=== PATIENT | male | born 2000 | race Hispanic/Latino ===

== ENCOUNTER 2023-03-13 15:14 | Emergency (ER) | payer SELFPAY ==
--- OUTSIDE RECORDS SUMMARY | 2023-03-13 15:26 | XMS REPORT | Continuity of Care Document ---
:2000 Author Organization [facility] t Address [address] [place] [address] Care Team Providers Name Role Phone Abeba Marlow Primary Care Physician Oliva Marlow Attending Clinician Unavailable Doctor Unassigned, [place] Attending Clinician Unavailable Radiology Attending Clinician Unavailable RADIOLOGY Attending Clinician Unavailable CRISTAL Attending Clinician Unavailable Latonya Medrano DO Attending Clinician Jada Antonio Attending Clinician JADA ANTONIO M.D. Attending Clinician Unavailable TRISTIN ANTUNEZ Admitting Clinician Unavailable CRISTAL Admitting Clinician Unavailable Jada Antonio Admitting Clinician Payers Payer Name Policy Type Policy Number Effective Date Expiration Date S ource Problems Condition Condition Condition Status Onset Resolution Last Treating Co mments Source Name Details Category Date Date Treatment Clinician Date RT LFT RT LFT Diagnosis Active 2017-062018-08-19 Dc peggya MALLET MALLET 0-11 18:02:00 l Active 08:00: 04/08/2018 [facility] LACERATION Diagnosis Active 2018-03-30 Memoria LACERATION 03-02 14:06:00 l Active 00:00: [place] 03/02/2018 [facility] GISSEL GISSEL Diagnosis Active 2018-03-23 Memoria BILLING BILLING 03-02 11:30:00 l Active 00:00: [place] 03/02/2018 [facility] No known No known Disease Unive rs active active ity of problems problems [facility] Pain of Pain of Problem Active [place] right hand right hand [id number] Physici ans Laceration Laceratio Problem 2018-09-20 Memoria of n of 13:47:09 l extensor extensor Saad n muscle, muscle, fascia and fascia and tendon of tendon of right right index index finger at finger at wrist and wrist and hand hand level, level, initial initial encounter encounter 09/20/2018 [facility] Contact Contact Problem 2018-09-20 M emoria with with 13:47:09 l powered powered Larry garden and garden and outdoor outdoor hand tools hand tools and and machinery, machinery, initial initial encounter encounter 09/20/2018 [facility] Laceration Problem 2018-09-20 M emoria without Laceration 13:47:09 l foreign without [place] body of foreign right body of hand, right initial hand, encounter initial encounter 09/20/2018 [facility] LACERATION LACERATIO Diagnosis Active 2018-03-30 Memoria WITHOUT N WITHOUT 14:06:00 l FOREIGN FOREIGN Larry BODY OF BODY OF RIGHT RIGHT Active [facility] Pain in Pain in Problem 2018-11-25 Me moria joints of joints of 11:37:15 l right hand right hand He rmann 9 [facility] Localized Localized Problem 2018-11-25 Memoria swelling, swelling, 11:37:15 l mass and mass and Saad n lump, lump, right right upper limb upper limb 9 [facility] Stiffness Stiffness Problem 2018-11-25 Memoria of right of right 11:37:15 l hand, not hand, not Herm lazaro elsewhere elsewhere classified classified 11/25/2018 [facility] Nondisplac Nondispla Problem 2018-09-20 Memoria ed addy 13:47:09 l fracture fracture Saad n of medial of medial phalanx of phalanx of right right index index finger, finger, initial initial encounter encounter for open for open fracture fracture 09/20/2018 [facility] History of Past Illness Condition Condition Condition Status Onset Resolution Last Treating Co mments Source Name Details Category Date Date Treatment Clinician Date Mallet Mallet Problem 2017-2018-11-25 2018-11-25 Memoria finger of finger of 1-16 11:37:15 11:37:15 l right right 06:39: Larry finger(s) finger(s) 13 05/14/2018 9 [facility] Nondisplac Nondispla Problem 2017-2018-09-20 2018-09-20 [facility] ed addy 9-12 13:47:09 13:47:09 l fracture fracture 03:31: Saad n of distal of distal 04 phalanx of phalanx of right right index index finger, finger, initial initial encounter encounter for open for open fracture fracture 03/10/2018 09/20/2018 [facility] Allergies, Adverse Reactions, Alerts Allergy Allergy Status Severity Reaction(s) Onset Inactive Treating Comm ents Source Name Type Date Date Clinician NO KNOWN Drug Active Univers ALLERGIE Class ity of S [facility] No Known No Known Active Memori a Medicati Medicati l on on Larry Allergie Allergie s s Social History Social Habit Start Date Stop Date Quantity Comments Source Exposure to Unable to [facility] SARS-CoV-2 (event) assess [facility] Gender identity [facility] Sexual orientation Univer sity [facility] History of Social 2015-11-01 2015-11-01 Univers ity of function 00:00:00 00:00:00 [facility] Sex Assigned At [birth year] Universit y of 00:00:00 00:00:00 [facility] Smoking Status Start Date Stop Date Source Social History [facility] Medications Ordered Filled Start Stop Current Ordering Indication Dosage Frequency Signature Comments Components Source Medication Medication Date Date Medication? Clinician (SIG) Name Name Dose 2021-06 No Unknown 0-26 00:00: 00 Dose 2021-06 No Unknown 0-26 00:00: 00 TAKE 1 2021-06 No TABLET BY 0-25 MOUTH ONCE 00:00: DAILY 00 TAKE 1 2021-06 No TABLET BY 0-25 MOUTH ONCE 00:00: DAILY 00 Dose 2020-06 No Unknown 2-30 00:00: 00 Dose 2020-06 No Unknown 2-30 00:00: 00 clindamycin 2020-06 No 1mg HCl 300 mg 2-21 capsule 00:00: 00 clindamycin 2020-06 No 1mg HCl 300 mg 2-21 capsule 00:00: 00 maalox:diph 2021-0 2021- No 15mL 15 mL, Uni vers enhydrAMINE 01-24 Oral, ity of :lidocaine 15:15: 14:20 ONCE, 1 Lukasz as 2 % viscous 00 :00 dose, Aura Med ical 1:1:1 01/24/21 at [place] (FIRST-MOUT 1015, HWASH BLM) Routine oral suspension 15 mL Ancef No Notes: Memoria -05 Pediatric l 16:00: Dilution - [place] 00 Wruh=345uh /ml (Same As: Ancef) Ancef No Notes: Memoria -05 Pediatric l 16:00: Dilution - [place] 00 Adye=736pd /ml (Same As: Ancef) Ancef 0 No Notes: Memoria -05 Pediatric l 16:00: Dilution - [place] 00 Tyjf=264hl /ml (Same As: Ancef) Ancef No Notes: Memoria 05 Pediatric l 16:00: Dilution - [place] 00 Pwgo=297qh /ml (Same As: Ancef) Ancef No Notes: Memoria 05 Pediatric l 16:00: Dilution - [place] 00 Ugig=198mj /ml (Same As: Ancef) Ancef No Notes: Memoria -05 Pediatric l 16:00: Dilution - [place] 00 Ljek=462ir /ml (Same As: Ancef) Ancef 0 No Notes: Memoria -05 Pediatric l 16:00: Dilution [place] 00 - Wygq=759zo /ml (Same As: Ancef) Ancef 0 No Notes: Memoria 9-05 Pediatric l 16:00: Dilution - [place] 00 Wbvq=369qv /ml (Same As: Ancef) Ancef 0 No Notes: Memoria 9-05 Pediatric l 16:00: Dilution - [place] 00 Pwgn=840dx /ml (Same As: Ancef) Ancef 0 No Notes: Memoria -05 Pediatric l 16:00: Dilution - [place] 00 Imde=367rx /ml (Same As: Ancef) Ancef 0 No Notes: Memoria 9-05 Pediatric l 16:00: Dilution - [place] 00 Kpph=184fv /ml (Same As: Ancef) Ancef 0 No Notes: Memoria 9-05 Pediatric l 16:00: Dilution - [place] 00 Emjb=997qj /ml (Same As: Ancef) Ancef 2018-0 No Notes: Memoria 03-03 Pediatric l 16:00: Dilution - [place] 00 Lubp=738ru /ml (Same As: Ancef) Cefazolin 2018-0 No Notes: Memori a 03-03 Pediatric l 05:00: Dilution - [place] 00 Gafj=219bl /ml (Same As: Ancef) Cefazolin 2018-0 No Notes: Memori a 03-03 Pediatric l 05:00: Dilution - [place] 00 Jpwr=852tn /ml (Same As: Ancef) Cefazolin 2018-0 No Notes: Memori a 03-03 Pediatric l 05:00: Dilution - [place] 00 Hstc=441ao /ml (Same As: Ancef) Cefazolin 2018-0 No Notes: Memori a 03-03 Pediatric l 05:00: Dilution - [place] 00 Varo=913ny /ml (Same As: Ancef) Cefazolin 2018-0 No Notes: Memori a 03-03 Pediatric l 05:00: Dilution - [place] 00 Rrkx=420fu /ml (Same As: Ancef) Cefazolin 2018-0 No Notes: Memori a 03-03 Pediatric l 05:00: Dilution - [place] 00 Uofx=436ec /ml (Same As: Ancef) Cefazolin 2018-0 No Notes: Memori a 03-03 Pediatric l 05:00: Dilution - [place] 00 Asly=787hu /ml (Same As: Ancef) Cefazolin 2018-0 No Notes: Memori a 03-03 Pediatric l 05:00: Dilution - [place] 00 Gomp=535ac /ml (Same As: Ancef) Cefazolin 2018-0 No Notes: Memori a 03-03 Pediatric l 05:00: Dilution - [place] 00 Bosz=592mf /ml (Same As: Ancef) Cefazolin 2018-0 No Notes: Memori a 03-03 Pediatric l 05:00: Dilution - [place] 00 Jkoa=223ul /ml (Same As: Ancef) Cefazolin 2018-0 No Notes: Memori a 03-03 Pediatric l 05:00: Dilution - [place] 00 Tmnr=540gi /ml (Same As: Ancef) Cefazolin 2018-0 No Notes: Memori a 03-03 Pediatric l 05:00: Dilution - [place] 00 Djxh=285dd /ml (Same As: Ancef) Cefazolin 2018-0 No Notes: Memori a 03-03 Pediatric l 05:00: Dilution - [place] 00 Qjma=226tx /ml (Same As: Ancef) oxyCODONE 2018-0 No Notes: Memori a - (Same l 01:29: as:'Roxico [place] 00 done) To be drawn up in 3 mL syr oxyCODONE 2018-0 No Notes: Memori a - (Same l 01:29: as:'Roxico [place] 00 done) To be drawn up in 3 mL syr oxyCODONE 2018-0 No Notes: Memori a 03-03 (Same l 01:29: as:'Roxico [place] 00 done) To be drawn up in 3 mL syr oxyCODONE 2018-0 No Notes: Memori a 03-03 (Same l 01:29: as:'Roxico [place] 00 done) To be drawn up in 3 mL syr oxyCODONE 2018-0 No Notes: Memori a - (Same l 01:29: as:'Roxico [place] 00 done) To be drawn up in 3 mL syr oxyCODONE 2018-0 No Notes: Memori a 03-03 (Same l 01:29: as:'Roxico [place] 00 done) To be drawn up in 3 mL syr oxyCODONE 2018-0 No Notes: Memori a - (Same l 01:29: as:'Roxico [place] 00 done) To be drawn up in 3 mL syr oxyCODONE 2018-0 No Notes: Memori a - (Same l 01:29: as:'Roxico [place] 00 done) To be drawn up in 3 mL syr oxyCODONE 2018-0 No Notes: Memori a -05 (Same l 01:29: as:'Roxico [place] 00 done) To be drawn up in 3 mL syr oxyCODONE 2018-0 No Notes: Memori a 9-05 (Same l 01:29: as:'Roxico [place] 00 done) To be drawn up in 3 mL syr oxyCODONE 2018-0 No Notes: Memori a 9- (Same l 01:29: as:'Roxico [place] 00 done) To be drawn up in 3 mL syr oxyCODONE 2018-0 No Notes: Memori a 9-05 (Same l 01:29: as:'Roxico [place] 00 done) To be drawn up in 3 mL syr oxyCODONE 2018-0 No Notes: Memori a 9-05 (Same l 01:29: as:'Roxico [place] 00 done) To be drawn up in 3 mL syr Ibuprofen 2018-0 No Notes: Memori a 400 MG Oral 9-05 (Same as: l Tablet 00:48: Advil) Larry 00 Give with food. Ibuprofen 2018-0 No Notes: Memori a 400 MG Oral 9-05 (Same as: l Tablet 00:48: Advil) [place] 00 Give with food. Ibuprofen 2018-0 No Notes: Memori a 400 MG Oral 9-05 (Same as: l Tablet 00:48: Advil) [place] 00 Give with food. Ibuprofen 2018-0 No Notes: Memori a 400 MG Oral 9-05 (Same as: l Tablet 00:48: Advil) [place] 00 Give with food. Ibuprofen 2018-0 No Notes: Memori a 400 MG Oral 9-05 (Same as: l Tablet 00:48: Advil) [place] 00 Give with food. Ibuprofen 2018-0 No Notes: Memori a 400 MG Oral 9-05 (Same as: l Tablet 00:48: Advil) Larry 00 Give with food. Ibuprofen 2018-0 No Notes: Memori a 400 MG Oral 9-05 (Same as: l Tablet 00:48: Advil) [place] 00 Give with food. Ibuprofen 2018-0 No Notes: Memori a 400 MG Oral 9-05 (Same as: l Tablet 00:48: Advil) [place] 00 Give with food. Ibuprofen 2018-0 No Notes: Memori a 400 MG Oral 9-05 (Same as: l Tablet 00:48: Advil) [place] 00 Give with food. Ibuprofen 2018-0 No Notes: Memori a 400 MG Oral 9-05 (Same as: l Tablet 00:48: Advil) Larry 00 Give with food. Ibuprofen 2018-0 No Notes: Memori a 400 MG Oral 9-05 (Same as: l Tablet 00:48: Advil) Larry 00 Give with food. Ibuprofen 2018-0 No Notes: Memori a 400 MG Oral -05 (Same as: l Tablet 00:48: Advil) [place] Give with food. Ibuprofen 2018- No Notes: Memori a 400 MG Oral 9-05 (Same as: l Tablet 00:48: Advil) Larry Give with food. midazolam No Route: IV, Me moria (ANES) 03-03 Drug form: l 00:43: SOLN, [place] 00 ONCE, Stop date: 03/02/18 19:43:00 CDT Diphenhydra 2017-0 No Notes: Puneet cecile mine - (Same as: l 00:43: Benadryl) Larry 00 Ondansetron No Notes: Puneet cecile 9-05 (Same as: l 00:43: Zofran) Larry 00 MEDICATION WASTE Product Size: 4 mg Product Wasted: ___ mg midazolam No Route: IV, Me moria (ANES) 03-03 Drug form: l 00:43: SOLN, [place] 00 ONCE, Stop date: 03/02/18 19:43:00 CDT Diphenhydra 2017-0 No Notes: Puneet cecile mine -05 (Same as: l 00:43: Benadryl) [place] 00 Ondansetron 0 No Notes: Puneet cecile -05 (Same as: l 00:43: Zofran) [place] 00 MEDICATION WASTE Product Size: 4 mg Product Wasted: ___ mg midazolam No Route: IV, Me moria (ANES) 03-03 Drug form: l 00:43: SOLN, [place] 00 ONCE, Stop date: 03/02/18 19:43:00 CDT Diphenhydra 2017-0 No Notes: Puneet cecile mine -05 (Same as: l 00:43: Benadryl) [place] 00 Ondansetron 0 No Notes: Puneet cecile 9-05 (Same as: l 00:43: Zofran) [place] 00 MEDICATION WASTE Product Size: 4 mg Product Wasted: ___ mg midazolam No Route: IV, Me moria (ANES) 9 Drug form: l 00:43: SOLN, Larry 00 ONCE, Stop date: 03/02/18 19:43:00 CDT Diphenhydra 2017-0 No Notes: Puneet cecile mine - (Same as: l 00:43: Benadryl) [place] Ondansetron No Notes: Puneet cecile 9-05 (Same as: l 00:43: Zofran) [place] 00 MEDICATION WASTE Product Size: 4 mg Product Wasted: ___ mg midazolam 2017- No Route: IV, Me moria (ANES) 03-03 Drug form: l 00:43: SOLN, [place] 00 ONCE, Stop date: 03/02/18 19:43:00 CDT Diphenhydra 2017-0 No Notes: Puneet cecile mine 03-03 (Same as: l 00:43: Benadryl) [place] Ondansetron No Notes: Puneet cecile 9 (Same as: l 00:43: Zofran) Larry 00 MEDICATION WASTE Product Size: 4 mg Product Wasted: ___ mg midazolam 2017-0 No Route: IV, Me moria (ANES) 03-03 Drug form: l 00:43: SOLNLarry 00 ONCE, Stop date: 03/02/18 19:43:00 CDT Diphenhydra 2017-0 No Notes: Puneet cecile mine 03-03 (Same as: l 00:43: Benadryl) Larry Ondansetron No Notes: Puneet cecile 9-05 (Same as: l 00:43: Zofran) Larry 00 MEDICATION WASTE Product Size: 4 mg Product Wasted: ___ mg midazolam 2017-0 No Route: IV, Me moria (ANES) 03-03 Drug form: l 00:43: SOLNLarry 00 ONCE, Stop date: 03/02/18 19:43:00 CDT Diphenhydra 2017-0 No Notes: Puneet cecile mine -05 (Same as: l 00:43: Benadryl) [place] Ondansetron 2017-0 No Notes: Puneet cecile 9-05 (Same as: l 00:43: Zofran) Larry 00 MEDICATION WASTE Product Size: 4 mg Product Wasted: ___ mg midazolam 2017-0 No Route: IV, Me moria (ANES) 03-03 Drug form: l 00:43: SOLN, [place] 00 ONCE, Stop date: 03/02/18 19:43:00 CDT Diphenhydra 2017-0 No Notes: Puneet cceile mine 03-03 (Same as: l 00:43: Benadryl) Larry Ondansetron 2017- No Notes: Puneet cecile 03-03 (Same as: l 00:43: Zofran) Larry 00 MEDICATION WASTE Product Size: 4 mg Product Wasted: ___ mg midazolam 2017- No Route: IV, Me moria (ANES) 03-03 Drug form: l 00:43: SOLN, Larry 00 ONCE, Stop date: 03/02/18 19:43:00 CDT Diphenhydra 2017-0 No Notes: Puneet cecile mine 03-03 (Same as: l 00:43: Benadryl) [place] Ondansetron 2017-0 No Notes: Puneet cecile 03-03 (Same as: l 00:43: Zofran) Larry 00 MEDICATION WASTE Product Size: 4 mg Product Wasted: ___ mg midazolam No Route: IV, Me moria (ANES) 03-03 Drug form: l 00:43: SOLN, [place] 00 ONCE, Stop date: 03/02/18 19:43:00 CDT Diphenhydra 2017-0 No Notes: Puneet cecile mine 03-03 (Same as: l 00:43: Benadryl) Larry Ondansetron 2017-0 No Notes: Puneet cecile 03-03 (Same as: l 00:43: Zofran) Larry 00 MEDICATION WASTE Product Size: 4 mg Product Wasted: ___ mg midazolam No Route: IV, Me moria (ANES) 03-03 Drug form: l 00:43: SOLN, [place] 00 ONCE, Stop date: 03/02/18 19:43:00 CDT Diphenhydra 2017-0 No Notes: Puneet cecile mine 03-03 (Same as: l 00:43: Benadryl) [place] Ondansetron No Notes: Puneet cecile 03-03 (Same as: l 00:43: Zofran) Larry 00 MEDICATION WASTE Product Size: 4 mg Product Wasted: ___ mg midazolam No Route: IV, Me moria (ANES) 03-03 Drug form: l 00:43: SOLN, Larry 00 ONCE, Stop date: 03/02/18 19:43:00 CDT Diphenhydra 0 No Notes: Puneet cecile mine 03-03 (Same as: l 00:43: Benadryl) [place] Ondansetron No Notes: Puneet cecile 03-03 (Same as: l 00:43: Zofran) Larry 00 MEDICATION WASTE Product Size: 4 mg Product Wasted: ___ mg midazolam No Route: IV, Me moria (ANES) 03-03 Drug form: l 00:43: SOLN, [place] 00 ONCE, Stop date: 03/02/18 19:43:00 CDT Diphenhydra 2017-0 No Notes: Puneet cecile mine 03-03 (Same as: l 00:43: Benadryl) Larry Ondansetron No Notes: Puneet cecile 03-03 (Same as: l 00:43: Zofran) [place] 00 MEDICATION WASTE Product Size: 4 mg Product Wasted: ___ mg Acetaminoph No 1 tab, Puneet cecile en 300 MG / 03-03 Route: PO, l Codeine 00:42: Dosing [place] Phosphate 00 Weight 30 MG Oral 54.545, Tablet kg, Q4H, [Tylenol PRN Pain with Score Codeine #3] 6-10, Start date: 03/02/18 19:42:00 CDT, Duration: 30 day, Stop date: 04/01/18 19:41:00 CDT Acetaminoph 2017- No 1 tab, Puneet cecile en 300 MG / 03-03 Route: PO, l Codeine 00:42: Dosing [place] Phosphate 00 Weight 30 MG Oral 54.545, Tablet kg, Q4H, [Tylenol PRN Pain with Score Codeine #3] 6-10, Start date: 03/02/18 19:42:00 CDT, Duration: 30 day, Stop date: 04/01/18 19:41:00 CDT Acetaminoph 2017-0 No 1 tab, Puneet cecile en 300 MG / 03-03 Route: PO, l Codeine 00:42: Dosing [place] Phosphate 00 Weight 30 MG Oral 54.545, Tablet kg, Q4H, [Tylenol PRN Pain with Score Codeine #3] 6-10, Start date: 03/02/18 19:42:00 CDT, Duration: 30 day, Stop date: 04/01/18 19:41:00 CDT Acetaminoph 2017-0 No 1 tab, Puneet cecile en 300 MG / 03-03 Route: PO, l Codeine 00:42: Dosing [place] Phosphate 00 Weight 30 MG Oral 54.545, Tablet kg, Q4H, [Tylenol PRN Pain with Score Codeine #3] 6-10, Start date: 03/02/18 19:42:00 CDT, Duration: 30 day, Stop date: 04/01/18 19:41:00 CDT Acetaminoph 2017-0 No 1 tab, Puneet cecile en 300 MG / 05 Route: PO, l Codeine 00:42: Dosing [place] Phosphate 00 Weight 30 MG Oral 54.545, Tablet kg, Q4H, [Tylenol PRN Pain with Score Codeine #3] 6-10, Start date: 03/02/18 19:42:00 CDT, Duration: 30 day, Stop date: 04/01/18 19:41:00 CDT Acetaminoph 2017-0 No 1 tab, Puneet cecile en 300 MG / 05 Route: PO, l Codeine 00:42: Dosing [place] Phosphate 00 Weight 30 MG Oral 54.545, Tablet kg, Q4H, [Tylenol PRN Pain with Score Codeine #3] 6-10, Start date: 03/02/18 19:42:00 CDT, Duration: 30 day, Stop date: 04/01/18 19:41:00 CDT Acetaminoph 2017-0 No 1 tab, Puneet cecile en 300 MG / 05 Route: PO, l Codeine 00:42: Dosing [place] Phosphate 00 Weight 30 MG Oral 54.545, Tablet kg, Q4H, [Tylenol PRN Pain with Score Codeine #3] 6-10, Start date: 03/02/18 19:42:00 CDT, Duration: 30 day, Stop date: 04/01/18 19:41:00 CDT Acetaminoph 2017-0 No 1 tab, Puneet cecile en 300 MG / 03-03 Route: PO, l Codeine 00:42: Dosing [place] Phosphate 00 Weight 30 MG Oral 54.545, Tablet kg, Q4H, [Tylenol PRN Pain with Score Codeine #3] 6-10, Start date: 03/02/18 19:42:00 CDT, Duration: 30 day, Stop date: 04/01/18 19:41:00 CDT Acetaminoph 2017-0 No 1 tab, Puneet cecile en 300 MG / 03-03 Route: PO, l Codeine 00:42: Dosing [place] Phosphate 00 Weight 30 MG Oral 54.545, Tablet kg, Q4H, [Tylenol PRN Pain with Score Codeine #3] 6-10, Start date: 03/02/18 19:42:00 CDT, Duration: 30 day, Stop date: 04/01/18 19:41:00 CDT Acetaminoph 2017-0 No 1 tab, Puneet ceciel en 300 MG / 03-03 Route: PO, l Codeine 00:42: Dosing [place] Phosphate 00 Weight 30 MG Oral 54.545, Tablet kg, Q4H, [Tylenol PRN Pain with Score Codeine #3] 6-10, Start date: 03/02/18 19:42:00 CDT, Duration: 30 day, Stop date: 04/01/18 19:41:00 CDT Acetaminoph 2017-0 No 1 tab, Puneet cecile en 300 MG / 05 Route: PO, l Codeine 00:42: Dosing [place] Phosphate 00 Weight 30 MG Oral 54.545, Tablet kg, Q4H, [Tylenol PRN Pain with Score Codeine #3] 6-10, Start date: 03/02/18 19:42:00 CDT, Duration: 30 day, Stop date: 04/01/18 19:41:00 CDT Acetaminoph 2018-0 No 1 tab, Puneet cecile en 300 MG / 03-03 Route: PO, l Codeine 00:42: Dosing [place] Phosphate 00 Weight 30 MG Oral 54.545, Tablet kg, Q4H, [Tylenol PRN Pain with Score Codeine #3] 6-10, Start date: 03/02/18 19:42:00 CDT, Duration: 30 day, Stop date: 04/01/18 19:41:00 CDT Acetaminoph 0 No 1 tab, Puneet cecile en 300 MG / 03-03 Route: PO, l Codeine 00:42: Dosing [place] Phosphate 00 Weight 30 MG Oral 54.545, Tablet kg, Q4H, [Tylenol PRN Pain with Score Codeine #3] 6-10, Start date: 03/02/18 19:42:00 CDT, Duration: 30 day, Stop date: 04/01/18 19:41:00 CDT ondansetron 2017-0 No Route: IV, Memoria (ANES) 03-03 Drug form: l 00:40: INJ, ONCE, Larry 00 Stop date: 03/02/18 19:40:00 CDT ondansetron 0 No Route: IV, Memoria (ANES) 03-03 Drug form: l 00:40: INJ, ONCE, [place] 00 Stop date: 03/02/18 19:40:00 CDT ondansetron 2017-0 No Route: IV, Memoria (ANES) 03-03 Drug form: l 00:40: INJ, ONCE, [place] 00 Stop date: 03/02/18 19:40:00 CDT ondansetron 2017-0 No Route: IV, Memoria (ANES) 03-03 Drug form: l 00:40: INJ, ONCE, Larry Stop date: 03/02/18 19:40:00 CDT ondansetron 2017-0 No Route: IV, Memoria (ANES) 03-03 Drug form: l 00:40: INJ, ONCE, [place] 00 Stop date: 03/02/18 19:40:00 CDT ondansetron 2017-0 No Route: IV, Memoria (ANES) 03-03 Drug form: l 00:40: INJ, ONCE, [place] 00 Stop date: 03/02/18 19:40:00 CDT ondansetron 2017-0 No Route: IV, Memoria (ANES) 03-03 Drug form: l 00:40: INJ, ONCE, Stop date: 03/02/18 19:40:00 CDT ondansetron 2018-0 No Route: IV, Memoria (ANES) 03-03 Drug form: l 00:40: INJ, ONCE, Stop date: 03/02/18 19:40:00 CDT ondansetron 2017-0 No Route: IV, Memoria (ANES) 03-03 Drug form: l 00:40: INJ, ONCE, Stop date: 03/02/18 19:40:00 CDT ondansetron 2018-0 No Route: IV, Memoria (ANES) 03-03 Drug form: l 00:40: INJ, ONCE, Stop date: 03/02/18 19:40:00 CDT ondansetron 2017-0 No Route: IV, Memoria (ANES) 03-03 Drug form: l 00:40: INJ, ONCE, Stop date: 03/02/18 19:40:00 CDT ondansetron 2017-0 No Route: IV, Memoria (ANES) 03-03 Drug form: l 00:40: INJ, ONCE, Stop date: 03/02/18 19:40:00 CDT ondansetron 2017-0 No Route: IV, Memoria (ANES) 03-03 Drug form: l 00:40: INJ, ONCE, Stop date: 03/02/18 19:40:00 CDT dexmedetomi 2017-0 No Route: IV, Memoria dine (ANES) 03-03 Drug form: l + Premix 00:20: INJ, ONCE, Her navarrete Diluent Stop date: Sodium 03/02/18 Chloride 19:20:00 0.9% (ANES) CDT 98 mL dexmedetomi 2017-0 No Route: IV, Memoria dine (ANES) 03-03 Drug form: l + Premix 00:20: INJ, ONCE, Her nav[place] Diluent Stop date: Sodium 03/02/18 Chloride 19:20:00 0.9% (ANES) CDT 98 mL dexmedetomi No Route: IV, Memoria dine (ANES) 03-03 Drug form: l + Premix 00:20: INJ, ONCE, Her nav[place] Diluent 00 Stop date: Sodium 03/02/18 Chloride 19:20:00 0.9% (ANES) CDT 98 mL dexmedetomi No Route: IV, Memoria dine (ANES) 03-03 Drug form: l + Premix 00:20: INJ, ONCE, Her navar[place] Diluent 00 Stop date: Sodium 03/02/18 Chloride 19:20:00 0.9% (ANES) CDT 98 mL dexmedetomi No Route: IV, Memoria dine (ANES) 03-03 Drug form: l + Premix 00:20: INJ, ONCE, Her nav[place] Diluent 00 Stop date: Sodium 03/02/18 Chloride 19:20:00 0.9% (ANES) CDT 98 mL dexmedetomi No Route: IV, Memoria dine (ANES) 03-03 Drug form: l + Premix 00:20: INJ, ONCE, Her navarrete Diluent 00 Stop date: Sodium 03/02/18 Chloride 19:20:00 0.9% (ANES) CDT 98 mL dexmedetomi No Route: IV, Memoria dine (ANES) 03-03 Drug form: l + Premix 00:20: INJ, ONCE, Her navarrete Diluent 00 Stop date: Sodium 03/02/18 Chloride 19:20:00 0.9% (ANES) CDT 98 mL dexmedetomi No Route: IV, Memoria dine (ANES) 03-03 Drug form: l + Premix 00:20: INJ, ONCE, Her navarrete Diluent 00 Stop date: Sodium 03/02/18 Chloride 19:20:00 0.9% (ANES) CDT 98 mL dexmedetomi No Route: IV, Memoria dine (ANES) 03-03 Drug form: l + Premix 00:20: INJ, ONCE, Her navarrete Diluent 00 Stop date: Sodium 03/02/18 Chloride 19:20:00 0.9% (ANES) CDT 98 mL dexmedetomi No Route: IV, Memoria dine (ANES) 03-03 Drug form: l + Premix 00:20: INJ, ONCE, Her navarrete Diluent 00 Stop date: Sodium 03/02/18 Chloride 19:20:00 0.9% (ANES) CDT 98 mL dexmedetomi No Route: IV, Memoria dine (ANES) 03-03 Drug form: l + Premix 00:20: INJ, ONCE, Her navarrete Diluent 00 Stop date: Sodium 03/02/18 Chloride 19:20:00 0.9% (ANES) CDT 98 mL dexmedetomi No Route: IV, Memoria dine (ANES) 03-03 Drug form: l + Premix 00:20: INJ, ONCE, Her navarrete Diluent 00 Stop date: Sodium 03/02/18 Chloride 19:20:00 0.9% (ANES) CDT 98 mL dexmedetomi No Route: IV, Memoria dine (ANES) 03-03 Drug form: l + Premix 00:20: INJ, ONCE, Her navarrete Diluent 00 Stop date: Sodium 03/02/18 Chloride 19:20:00 0.9% (ANES) CDT 98 mL dexamethaso No Route: IV, Memoria ne (ANES) 03-03 Drug form: l 00:10: INJ, ONCE, [place] 00 Stop date: 03/02/18 19:10:00 CDT dexamethaso 0 No Route: IV, Memoria ne (ANES) 03-03 Drug form: l 00:10: INJ, ONCE, [place] 00 Stop date: 03/02/18 19:10:00 CDT dexamethaso 2017-0 No Route: IV, Memoria ne (ANES) 03-03 Drug form: l 00:10: INJ, ONCE, [place] 00 Stop date: 03/02/18 19:10:00 CDT dexamethaso 2017-0 No Route: IV, Memoria ne (ANES) 03-03 Drug form: l 00:10: INJ, ONCE, [place] 00 Stop date: 03/02/18 19:10:00 CDT dexamethaso 0 No Route: IV, Memoria ne (ANES) 03-03 Drug form: l 00:10: INJ, ONCE, Stop date: 03/02/18 19:10:00 CDT dexamethaso 2018-0 No Route: IV, Memoria ne (ANES) 03-03 Drug form: l 00:10: INJ, ONCE, Stop date: 03/02/18 19:10:00 CDT dexamethaso 2017-0 No Route: IV, Memoria ne (ANES) 03-03 Drug form: l 00:10: INJ, ONCE, Stop date: 03/02/18 19:10:00 CDT dexamethaso 2017-0 No Route: IV, Memoria ne (ANES) 03-03 Drug form: l 00:10: INJ, ONCE, Stop date: 03/02/18 19:10:00 CDT dexamethaso 2017-0 No Route: IV, Memoria ne (ANES) 03-03 Drug form: l 00:10: INJ, ONCE, Stop date: 03/02/18 19:10:00 CDT dexamethaso 2017-0 No Route: IV, Memoria ne (ANES) 03-03 Drug form: l 00:10: INJ, ONCE, Stop date: 03/02/18 19:10:00 CDT dexamethaso 2018-0 No Route: IV, Memoria ne (ANES) 03-03 Drug form: l 00:10: INJ, ONCE, Stop date: 03/02/18 19:10:00 CDT dexamethaso 2017-0 No Route: IV, Memoria ne (ANES) 03-03 Drug form: l 00:10: INJ, ONCE, Stop date: 03/02/18 19:10:00 CDT dexamethaso 2017-0 No Route: IV, Memoria ne (ANES) 03-03 Drug form: l 00:10: INJ, ONCE, Stop date: 03/02/18 19:10:00 CDT lidocaine 2017-0 No Route: IV, Me moria (ANES) 03-03 Drug form: l 00:05: INJ, ONCE, Stop date: 03/02/18 19:05:00 CDT lidocaine 2018-0 No Route: IV, Me moria (ANES) 9 Drug form: l 00:05: INJ, ONCE, [place] 00 Stop date: 03/02/18 19:05:00 CDT lidocaine 2018-0 No Route: IV, Me moria (ANES) 9 Drug form: l 00:05: INJ, ONCE, [place] 00 Stop date: 03/02/18 19:05:00 CDT lidocaine 2018-0 No Route: IV, Me moria (ANES) 03-03 Drug form: l 00:05: INJ, ONCE, [place] 00 Stop date: 03/02/18 19:05:00 CDT lidocaine 2018-0 No Route: IV, Me moria (ANES) 03-03 Drug form: l 00:05: INJ, ONCE, [place] 00 Stop date: 03/02/18 19:05:00 CDT lidocaine 2018-0 No Route: IV, Me moria (ANES) 03-03 Drug form: l 00:05: INJ, ONCE, Stop date: 03/02/18 19:05:00 CDT lidocaine 2018-0 No Route: IV, Me moria (ANES) 03-03 Drug form: l 00:05: INJ, ONCE, [place] 00 Stop date: 03/02/18 19:05:00 CDT lidocaine 2018-0 No Route: IV, Me moria (ANES) 9 Drug form: l 00:05: INJ, ONCE, Stop date: 03/02/18 19:05:00 CDT lidocaine 2018-0 No Route: IV, Me moria (ANES) 9 Drug form: l 00:05: INJ, ONCE, [place] 00 Stop date: 03/02/18 19:05:00 CDT lidocaine 2018-0 No Route: IV, Me moria (ANES) 9 Drug form: l 00:05: INJ, ONCE, [place] 00 Stop date: 03/02/18 19:05:00 CDT lidocaine 2018-0 No Route: IV, Me moria (ANES) 9- Drug form: l 00:05: INJ, ONCE, [place] 00 Stop date: 03/02/18 19:05:00 CDT lidocaine 2018-0 No Route: IV, Me moria (ANES) 9-05 Drug form: l 00:05: INJ, ONCE, Stop date: 03/02/18 19:05:00 CDT lidocaine 2018-0 No Route: IV, Me moria (ANES) 03-03 Drug form: l 00:05: INJ, ONCE, [place] 00 Stop date: 03/02/18 19:05:00 CDT fentaNYL 2018-0 No Route: IV, Mem oria (ANES) 03-03 Drug form: l 00:00: INJ, ONCE, [place] 00 Stop date: 03/02/18 19:00:00 CDT propofol 2018-0 No Route: IV, Mem oria (ANES) 9- Drug form: l 00:00: INJ, ONCE, Stop date: 03/02/18 19:00:00 CDT fentaNYL 2018-0 No Route: IV, Mem oria (ANES) - Drug form: l 00:00: INJ, ONCE, Stop date: 03/02/18 19:00:00 CDT propofol 2018-0 No Route: IV, Mem oria (ANES) 9- Drug form: l 00:00: INJ, ONCE, Stop date: 03/02/18 19:00:00 CDT fentaNYL 2018-0 No Route: IV, Mem oria (ANES) 9- Drug form: l 00:00: INJ, ONCE, [place] 00 Stop date: 03/02/18 19:00:00 CDT propofol 2018-0 No Route: IV, Mem oria (ANES) 9- Drug form: l 00:00: INJ, ONCE, [place] 00 Stop date: 03/02/18 19:00:00 CDT fentaNYL 2018-0 No Route: IV, Mem oria (ANES) 9- Drug form: l 00:00: INJ, ONCE, [place] 00 Stop date: 03/02/18 19:00:00 CDT propofol 2018-0 No Route: IV, Mem oria (ANES) 9- Drug form: l 00:00: INJ, ONCE, [place] 00 Stop date: 03/02/18 19:00:00 CDT fentaNYL 2018-0 No Route: IV, Mem oria (ANES) 9-05 Drug form: l 00:00: INJ, ONCE, [place] Stop date: 03/02/18 19:00:00 CDT propofol 2018-0 No Route: IV, Mem oria (ANES) 9-05 Drug form: l 00:00: INJ, ONCE, [place] Stop date: 03/02/18 19:00:00 CDT fentaNYL 2018-0 No Route: IV, Mem oria (ANES) 9-05 Drug form: l 00:00: INJ, ONCE, [place] Stop date: 03/02/18 19:00:00 CDT propofol 2018-0 No Route: IV, Mem oria (ANES) 9-05 Drug form: l 00:00: INJ, ONCE, [place] Stop date: 03/02/18 19:00:00 CDT fentaNYL 2018-0 No Route: IV, Mem oria (ANES) 9-05 Drug form: l 00:00: INJ, ONCE, [place] 00 Stop date: 03/02/18 19:00:00 CDT propofol 2018-0 No Route: IV, Mem oria (ANES) 9-05 Drug form: l 00:00: INJ, ONCE, [place] 00 Stop date: 03/02/18 19:00:00 CDT fentaNYL 2018-0 No Route: IV, Mem oria (ANES) 9-05 Drug form: l 00:00: INJ, ONCE, [place] Stop date: 03/02/18 19:00:00 CDT propofol 2018-0 No Route: IV, Mem oria (ANES) 9-05 Drug form: l 00:00: INJ, ONCE, [place] Stop date: 03/02/18 19:00:00 CDT fentaNYL 2018-0 No Route: IV, Mem oria (ANES) 9-05 Drug form: l 00:00: INJ, ONCE, [place] Stop date: 03/02/18 19:00:00 CDT propofol 2018-0 No Route: IV, Mem oria (ANES) 9-05 Drug form: l 00:00: INJ, ONCE, [place] Stop date: 03/02/18 19:00:00 CDT fentaNYL 2018-0 No Route: IV, Mem oria (ANES) 9-05 Drug form: l 00:00: INJ, ONCE, [place] Stop date: 03/02/18 19:00:00 CDT propofol 2018-0 No Route: IV, Mem oria (ANES) 03-03 Drug form: l 00:00: INJ, ONCE, Stop date: 03/02/18 19:00:00 CDT fentaNYL 2018-0 No Route: IV, Mem oria (ANES) 03-03 Drug form: l 00:00: INJ, ONCE, Stop date: 03/02/18 19:00:00 CDT propofol 2018-0 No Route: IV, Mem oria (ANES) 03-03 Drug form: l 00:00: INJ, ONCE, Stop date: 03/02/18 19:00:00 CDT fentaNYL 2018-0 No Route: IV, Mem oria (ANES) 03-03 Drug form: l 00:00: INJ, ONCE, Stop date: 03/02/18 19:00:00 CDT propofol 2018-0 No Route: IV, Mem oria (ANES) 03-03 Drug form: l 00:00: INJ, ONCE, Stop date: 03/02/18 19:00:00 CDT fentaNYL 2018-0 No Route: IV, Mem oria (ANES) 03-03 Drug form: l 00:00: INJ, ONCE, Stop date: 03/02/18 19:00:00 CDT propofol 2018-0 No Route: IV, Mem oria (ANES) 03-03 Drug form: l 00:00: INJ, ONCE, Stop date: 03/02/18 19:00:00 CDT Oxycodone 2018-0 No 6 months) Me moria 03-02 l 23:51: Ibuprofen 2018-0 No 500 mg, Memor ia 03-02 Route: PO, l 23:51: Drug form: SUSP, ONCE, Dosing Weight 54.545, kg, PRN Pain Score 4-6, Start date: 03/02/18 18:51:00 CDT Morphine 2018-0 No 1.5 mg, Memori a 03-02 Route: l 23:51: IVP, Q10Min, Dosing Weight 54.545, kg, PRN Pain Score 4-6, Start date: 03/02/18 18:51:00 CDT, Duration: 2 doses or times, Stop date: Limited # of times Oxycodone 2018-0 No 6 months) Dc adam 03-02 l 23:51: [place] 00 Ibuprofen 2018-0 No 500 mg, Memor ia 03-02 Route: PO, l 23:51: Drug form: [place] 00 SUSP, ONCE, Dosing Weight 54.545, kg, PRN Pain Score 4-6, Start date: 03/02/18 18:51:00 CDT Morphine 2018-0 No 1.5 mg, Memori a 03-02 Route: l 23:51: IVP, [place] 00 Q10Min, Dosing Weight 54.545, kg, PRN Pain Score 4-6, Start date: 03/02/18 18:51:00 CDT, Duration: 2 doses or times, Stop date: Limited # of times Oxycodone 2018-0 No 6 months) Dc peggy 03-02 l 23:51: [place] 00 Ibuprofen 2018-0 No 500 mg, Memor ia 03-02 Route: PO, l 23:51: Drug form: [place] 00 SUSP, ONCE, Dosing Weight 54.545, kg, PRN Pain Score 4-6, Start date: 03/02/18 18:51:00 CDT Morphine 2018-0 No 1.5 mg, Memori a 03-02 Route: l 23:51: IVP, [place] 00 Q10Min, Dosing Weight 54.545, kg, PRN Pain Score 4-6, Start date: 03/02/18 18:51:00 CDT, Duration: 2 doses or times, Stop date: Limited # of times Oxycodone 2018-0 No 6 months) Dc peggy 03-02 l 23:51: [place] 00 Ibuprofen 2018-0 No 500 mg, Memor ia 03-02 Route: PO, l 23:51: Drug form: [place] 00 SUSP, ONCE, Dosing Weight 54.545, kg, PRN Pain Score 4-6, Start date: 03/02/18 18:51:00 CDT Morphine 2018-0 No 1.5 mg, Memori a 03-02 Route: l 23:51: IVP, [place] 00 Q10Min, Dosing Weight 54.545, kg, PRN Pain Score 4-6, Start date: 03/02/18 18:51:00 CDT, Duration: 2 doses or times, Stop date: Limited # of times Oxycodone 2018-0 No 6 months) Dc adam 03-02 l 23:51: [place] 00 Ibuprofen 2018-0 No 500 mg, Memor ia 03-02 Route: PO, l 23:51: Drug form: [place] 00 SUSP, ONCE, Dosing Weight 54.545, kg, PRN Pain Score 4-6, Start date: 03/02/18 18:51:00 CDT Oxycodone 2018-0 No 6 months) Dc adam 03-02 l 23:51: [place] 00 Ibuprofen 2018-0 No 500 mg, Memor ia 03-02 Route: PO, l 23:51: Drug form: [place] 00 SUSP, ONCE, Dosing Weight 54.545, kg, PRN Pain Score 4-6, Start date: 03/02/18 18:51:00 CDT Morphine 2018-0 No 1.5 mg, Memori a 03-02 Route: l 23:51: IVP, [place] 00 Q10Min, Dosing Weight 54.545, kg, PRN Pain Score 4-6, Start date: 03/02/18 18:51:00 CDT, Duration: 2 doses or times, Stop date: Limited # of times Morphine 2018-0 No 1.5 mg, Memori a 03-02 Route: l 23:51: IVP, [place] 00 Q10Min, Dosing Weight 54.545, kg, PRN Pain Score 4-6, Start date: 03/02/18 18:51:00 CDT, Duration: 2 doses or times, Stop date: Limited # of times Oxycodone 2018-0 No 6 months) [facility] 03-02 l 23:51: [place] 00 Ibuprofen 2018-0 No 500 mg, Memor ia 03-02 Route: PO, l 23:51: Drug form: [place] 00 SUSP, ONCE, Dosing Weight 54.545, kg, PRN Pain Score 4-6, Start date: 03/02/18 18:51:00 CDT Morphine 2018-0 No 1.5 mg, Memori a 03-02 Route: l 23:51: IVP, [place] 00 Q10Min, Dosing Weight 54.545, kg, PRN Pain Score 4-6, Start date: 03/02/18 18:51:00 CDT, Duration: 2 doses or times, Stop date: Limited # of times Oxycodone 2018-0 No 6 months) [facility] medina 03-02 l 23:51: [place] 00 Ibuprofen 2018-0 No 500 mg, Memor ia 9 Route: PO, l 23:51: Drug form: [place] 00 SUSP, ONCE, Dosing Weight 54.545, kg, PRN Pain Score 4-6, Start date: 03/02/18 18:51:00 CDT Morphine 2018-0 No 1.5 mg, Memori a 9 Route: l 23:51: IVP, [place] 00 Q10Min, Dosing Weight 54.545, kg, PRN Pain Score 4-6, Start date: 03/02/18 18:51:00 CDT, Duration: 2 doses or times, Stop date: Limited # of times Oxycodone 2018-0 No 6 months) Dc adam 03-02 l 23:51: [place] 00 Ibuprofen 2018-0 No 500 mg, Memor ia 03-02 Route: PO, l 23:51: Drug form: [place] 00 SUSP, ONCE, Dosing Weight 54.545, kg, PRN Pain Score 4-6, Start date: 03/02/18 18:51:00 CDT Morphine 2018-0 No 1.5 mg, Memori a 03-02 Route: l 23:51: IVP, [place] 00 Q10Min, Dosing Weight 54.545, kg, PRN Pain Score 4-6, Start date: 03/02/18 18:51:00 CDT, Duration: 2 doses or times, Stop date: Limited # of times Oxycodone 2018-0 No 6 months) Dc adam 03-02 l 23:51: [place] 00 Ibuprofen 2018-0 No 500 mg, Memor ia 9 Route: PO, l 23:51: Drug form: [place] 00 SUSP, ONCE, Dosing Weight 54.545, kg, PRN Pain Score 4-6, Start date: 03/02/18 18:51:00 CDT Morphine 2018-0 No 1.5 mg, Memori a 9- Route: l 23:51: IVP, [place] 00 Q10Min, Dosing Weight 54.545, kg, PRN Pain Score 4-6, Start date: 03/02/18 18:51:00 CDT, Duration: 2 doses or times, Stop date: Limited # of times Oxycodone 2018-0 No 6 months) Me medina 03-02 l 23:51: [place] 00 Ibuprofen 2018-0 No 500 mg, Memor ia 03-02 Route: PO, l 23:51: Drug form: [place] 00 SUSP, ONCE, Dosing Weight 54.545, kg, PRN Pain Score 4-6, Start date: 03/02/18 18:51:00 CDT Morphine 2018-0 No 1.5 mg, Memori a 03-02 Route: l 23:51: IVP, [place] 00 Q10Min, Dosing Weight 54.545, kg, PRN Pain Score 4-6, Start date: 03/02/18 18:51:00 CDT, Duration: 2 doses or times, Stop date: Limited # of times [facility]xycodone 2018-0 No 6 months) [facility]: [place] 00 Ibuprofen 2018-0 No 500 mg, Memor ia 03-02 Route: PO, l 23:51: Drug form: [place] 00 SUSP, ONCE, Dosing Weight 54.545, kg, PRN Pain Score 4-6, Start date: 03/02/18 18:51:00 CDT Morphine 2018-0 No 1.5 mg, Memori a 03-02 Route: l 23:51: IVP, [place] 00 Q10Min, Dosing Weight 54.545, kg, PRN Pain Score 4-6, Start date: 03/02/18 18:51:00 CDT, Duration: 2 doses or times, Stop date: Limited # of times Oxycodone 2018-0 No 6 months) Dc adam 03-02 l 23:51: [place] 00 Ibuprofen 2018-0 No 500 mg, Memor ia 03-02 Route: PO, l 23:51: Drug form: [place] 00 SUSP, ONCE, Dosing Weight 54.545, kg, PRN Pain Score 4-6, Start date: 03/02/18 18:51:00 CDT Morphine 2018-0 No 1.5 mg, Memori a 03-02 Route: l 23:51: IVP, [place] Q10Min, Dosing Weight 54.545, kg, PRN Pain Score 4-6, Start date: 03/02/18 18:51:00 CDT, Duration: 2 doses or times, Stop date: Limited # of times ceFAZolin No Route: IV, Me moria (ANES) 03-02 Drug form: l 23:50: INJ, ONCE, Stop date: 03/02/18 18:50:00 CDT ceFAZolin 0 No Route: IV, Me moria (ANES) 03-02 Drug form: l 23:50: INJ, ONCE, Stop date: 03/02/18 18:50:00 CDT ceFAZolin 2017-0 No Route: IV, Me moria (ANES) 03-02 Drug form: l 23:50: INJ, ONCE, Stop date: 03/02/18 18:50:00 CDT ceFAZolin 0 No Route: IV, Me moria (ANES) 03-02 Drug form: l 23:50: INJ, ONCE, Stop date: 03/02/18 18:50:00 CDT ceFAZolin 0 No Route: IV, Me moria (ANES) 03-02 Drug form: l 23:50: INJ, ONCE, Stop date: 03/02/18 18:50:00 CDT ceFAZolin 0 No Route: IV, Me moria (ANES) 03-02 Drug form: l 23:50: INJ, ONCE, Stop date: 03/02/18 18:50:00 CDT ceFAZolin 2017-0 No Route: IV, Me moria (ANES) 03-02 Drug form: l 23:50: INJ, ONCE, Stop date: 03/02/18 18:50:00 CDT ceFAZolin 2017-0 No Route: IV, Me moria (ANES) 03-02 Drug form: l 23:50: INJ, ONCE, Stop date: 03/02/18 18:50:00 CDT ceFAZolin 0 No Route: IV, Me moria (ANES) 03-02 Drug form: l 23:50: INJ, ONCE, Stop date: 03/02/18 18:50:00 CDT ceFAZolin 0 No Route: IV, Me moria (ANES) 03-02 Drug form: l 23:50: INJ, ONCE, Stop date: 03/02/18 18:50:00 CDT ceFAZolin No Route: IV, Me moria (ANES) 03-02 Drug form: l 23:50: INJ, ONCE, Stop date: 03/02/18 18:50:00 CDT ceFAZolin 0 No Route: IV, Me moria (ANES) 03-02 Drug form: l 23:50: INJ, ONCE, Stop date: 03/02/18 18:50:00 CDT ceFAZolin No Route: IV, Me moria (ANES) 03-02 Drug form: l 23:50: INJ, ONCE, Stop date: 03/02/18 18:50:00 CDT Isolyte S No Route: IV, Me moria PH 7.4 03-02 Total l (ANES) 500 23:15: Volume: Herm lazaro mL 500, Start date: 03/02/18 18:15:00 CDT, Stop date: 03/02/18 19:15:00 CDT acetaminoph No Route: IV, Memoria en (ANES) 03-02 Drug form: l 10 mg 23:15: INJ, Start Saad n date: 03/02/18 18:15:00 CDT, Stop date: 03/02/18 19:15:00 CDT Isolyte S 0 No Route: IV, Me moria PH 7.4 03-02 Total l (ANES) 500 23:15: Volume: Herm lazaro mL 500, Start date: 03/02/18 18:15:00 CDT, Stop date: 03/02/18 19:15:00 CDT acetaminoph 0 No Route: IV, Memoria en (ANES) 03-02 Drug form: l 10 mg 23:15: INJ, Start Saad n date: 03/02/18 18:15:00 CDT, Stop date: 03/02/18 19:15:00 CDT Isolyte S 0 No Route: IV, Me moria PH 7.4 9- Total l (ANES) 500 23:15: Volume: Herm lazaro mL 500, Start date: 03/02/18 18:15:00 CDT, Stop date: 03/02/18 19:15:00 CDT acetaminoph No Route: IV, Memoria en (ANES) 03-02 Drug form: l 10 mg 23:15: INJ, Start Saad n date: 03/02/18 18:15:00 CDT, Stop date: 03/02/18 19:15:00 CDT Isolyte S 2017-0 No Route: IV, Me moria PH 7.4 03-02 Total l (ANES) 500 23:15: Volume: Herm lazaro mL 500, Start date: 03/02/18 18:15:00 CDT, Stop date: 03/02/18 19:15:00 CDT acetaminoph No Route: IV, Memoria en (ANES) 03-02 Drug form: l 10 mg 23:15: INJ, Start Saad n date: 03/02/18 18:15:00 CDT, Stop date: 03/02/18 19:15:00 CDT Isolyte S 0 No Route: IV, Me moria PH 7.4 03-02 Total l (ANES) 500 23:15: Volume: Herm lazaro mL 500, Start date: 03/02/18 18:15:00 CDT, Stop date: 03/02/18 19:15:00 CDT acetaminoph 0 No Route: IV, Memoria en (ANES) 03-02 Drug form: l 10 mg 23:15: INJ, Start Saad n date: 03/02/18 18:15:00 CDT, Stop date: 03/02/18 19:15:00 CDT Isolyte S 2017-0 No Route: IV, Me moria PH 7.4 03-02 Total l (ANES) 500 23:15: Volume: Herm lazaro mL 500, Start date: 03/02/18 18:15:00 CDT, Stop date: 03/02/18 19:15:00 CDT acetaminoph 2018-0 No Route: IV, Memoria en (ANES) 03-02 Drug form: l 10 mg 23:15: INJ, Start Saad n date: 03/02/18 18:15:00 CDT, Stop date: 03/02/18 19:15:00 CDT Isolyte S No Route: IV, Me moria PH 7.4 - Total l (ANES) 500 23:15: Volume: Herm lazaro mL 500, Start date: 03/02/18 18:15:00 CDT, Stop date: 03/02/18 19:15:00 CDT acetaminoph No Route: IV, Memoria en (ANES) 03-02 Drug form: l 10 mg 23:15: INJ, Start Saad date: 03/02/18 18:15:00 CDT, Stop date: 03/02/18 19:15:00 CDT Isolyte S No Route: IV, Me moria PH 7.4 - Total l (ANES) 500 23:15: Volume: Herm lazaro mL 500, Start date: 03/02/18 18:15:00 CDT, Stop date: 03/02/18 19:15:00 CDT acetaminoph No Route: IV, Memoria en (ANES) 03-02 Drug form: l 10 mg 23:15: INJ, Start Saad date: 03/02/18 18:15:00 CDT, Stop date: 03/02/18 19:15:00 CDT Isolyte S No Route: IV, Me moria PH 7.4 9- Total l (ANES) 500 23:15: Volume: Herm lazaro mL 500, Start date: 03/02/18 18:15:00 CDT, Stop date: 03/02/18 19:15:00 CDT acetaminoph No Route: IV, Memoria en (ANES) 03-02 Drug form: l 10 mg 23:15: INJ, Start Saad date: 03/02/18 18:15:00 CDT, Stop date: 03/02/18 19:15:00 CDT Isolyte S No Route: IV, Me moria PH 7.4 03-02 Total l (ANES) 500 23:15: Volume: Herm lazaro mL 500, Start date: 03/02/18 18:15:00 CDT, Stop date: 03/02/18 19:15:00 CDT acetaminoph No Route: IV, Memoria en (ANES) 03-02 Drug form: l 10 mg 23:15: INJ, Start Saad n date: 03/02/18 18:15:00 CDT, Stop date: 03/02/18 19:15:00 CDT Isolyte S 0 No Route: IV, Me moria PH 7.4 03-02 Total l (ANES) 500 23:15: Volume: Herm lazaro mL 500, Start date: 03/02/18 18:15:00 CDT, Stop date: 03/02/18 19:15:00 CDT acetaminoph No Route: IV, Memoria en (ANES) 03-02 Drug form: l 10 mg 23:15: INJ, Start Saad n date: 03/02/18 18:15:00 CDT, Stop date: 03/02/18 19:15:00 CDT Isolyte S No Route: IV, Me moria PH 7.4 03-02 Total l (ANES) 500 23:15: Volume: Herm lazaro mL 500, Start date: 03/02/18 18:15:00 CDT, Stop date: 03/02/18 19:15:00 CDT acetaminoph No Route: IV, Memoria en (ANES) 03-02 Drug form: l 10 mg 23:15: INJ, Start Saad n date: 03/02/18 18:15:00 CDT, Stop date: 03/02/18 19:15:00 CDT Isolyte S 0 No Route: IV, Me moria PH 7.4 03-02 Total l (ANES) 500 23:15: Volume: Herm lazaro mL 500, Start date: 03/02/18 18:15:00 CDT, Stop date: 03/02/18 19:15:00 CDT acetaminoph No Route: IV, Memoria en (ANES) 03-02 Drug form: l 10 mg 23:15: INJ, Start Saad n 00 date: 03/02/18 18:15:00 CDT, Stop date: 03/02/18 19:15:00 CDT Ancef 2017-0 No Notes: Memoria 03-02 (Same As: l 15:45: Ancef, [place] 00 Kefzol) MEDICATION WASTE Product Size: 1000 mg Product Wasted: __0_ mg Ancef 0 No Notes: Memoria 03-02 (Same As: l 15:45: Ancef, [place] 00 Kefzol) MEDICATION WASTE Product Size: 1000 mg Product Wasted: __0_ mg Ancef 0 No Notes: Memoria 03-02 (Same As: l 15:45: Ancef, [place] 00 Kefzol) MEDICATION WASTE Product Size: 1000 mg Product Wasted: __0_ mg Ancef 2017-0 No Notes: oria 03-02 (Same As: l 15:45: Ancef, [place] 00 Kefzol) MEDICATION WASTE Product Size: 1000 mg Product Wasted: __0_ mg Ancef 2017-0 No Notes: oria 03-02 (Same As: l 15:45: Ancef, [place] 00 Kefzol) MEDICATION WASTE Product Size: 1000 mg Product Wasted: __0_ mg Ancef 2017-0 No Notes: oria 03-02 (Same As: l 15:45: Ancef, [place] 00 Kefzol) MEDICATION WASTE Product Size: 1000 mg Product Wasted: __0_ mg Ancef 2017-0 No Notes: oria 03-02 (Same As: l 15:45: Ancef, [place] 00 Kefzol) MEDICATION WASTE Product Size: 1000 mg Product Wasted: __0_ mg Ancef 2017-0 No Notes: Memoria 03-02 (Same As: l 15:45: Ancef, [place] 00 Kefzol) MEDICATION WASTE Product Size: 1000 mg Product Wasted: __0_ mg Ancef 2017-0 No Notes: Memoria 03-02 (Same As: l 15:45: Ancef, [place] 00 Kefzol) MEDICATION WASTE Product Size: 1000 mg Product Wasted: __0_ mg Ancef 0 No Notes: Memoria 03-02 (Same As: l 15:45: Ancef, [place] 00 Kefzol) MEDICATION WASTE Product Size: 1000 mg Product Wasted: __0_ mg Ancef No Notes: Memoria 03-02 (Same As: l 15:45: Ancef, [place] 00 Kefzol) MEDICATION WASTE Product Size: 1000 mg Product Wasted: __0_ mg Ancef No Notes: Memoria 03-02 (Same As: l 15:45: Ancef, [place] 00 Kefzol) MEDICATION WASTE Product Size: 1000 mg Product Wasted: __0_ mg [facility] No [facility] ([facility] As: l 15:45: Ancef, [place] 00 Kefzol) MEDICATION WASTE Product Size: 1000 mg Product Wasted: __0_ mg IBUPROFEN Yes Take by Unive rs (ADVIL 5-05 mouth. ity of ORAL) 18:57: [address] IBUPROFEN Yes Take by Unive rs (ADVIL 5-05 mouth. ity of ORAL) 13:57: [address] IBUPROFEN Yes Take by Unive rs (ADVIL 5-05 mouth. ity of ORAL) 13:57: [address] IBUPROFEN Yes Take by Unive rs (ADVIL 5-05 mouth. ity of ORAL) 13:57: [address] IBUPROFEN Yes Take by Unive rs (ADVIL 5-05 mouth. ity of ORAL) 13:57: [address] IBUPROFEN Yes Take by Unive rs (ADVIL 5-05 mouth. ity of ORAL) 13:57: [address] Immunizations Ordered Immunization Filled Immunization Date Status Commen ts Source Name Name diphtheria/pertussis 2018-03-02 Completed Puneet ruben [place] , acel/tetanus adult 16:18:00 diphtheria/pertussis 2018-03-02 Completed Puneet ruben [place] , acel/tetanus adult 16:18:00 diphtheria/pertussis 2018-03-02 Completed Puneet rial [place] , acel/tetanus adult 16:18:00 diphtheria/pertussis 2018-03-02 Completed Puneet rial [place] , acel/tetanus adult 16:18:00 diphtheria/pertussis 2018-03-02 Completed Puneet rial [place] , acel/tetanus adult 16:18:00 diphtheria/pertussis 2018-03-02 Completed Puneet rial [place] , acel/tetanus adult 16:18:00 diphtheria/pertussis 2018-03-02 Completed Puneet rial [place] , acel/tetanus adult 16:18:00 diphtheria/pertussis 2018-03-02 Completed Puneet rial [place] , acel/tetanus adult 16:18:00 diphtheria/pertussis 2018-03-02 Completed Puneet rial [place] , acel/tetanus adult 16:18:00 diphtheria/pertussis 2018-03-02 Completed Puneet rial [place] , acel/tetanus adult 16:18:00 diphtheria/pertussis 2018-03-02 Completed Puneet rial [place] , acel/tetanus adult 16:18:00 diphtheria/pertussis 2018-03-02 Completed Puneet rial [place] , acel/tetanus adult 16:18:00 diphtheria/pertussis 2018-03-02 Completed Puneet rial [place] , acel/tetanus adult 16:18:00 meningococcal MCV4P 2018-02-23 Completed 00:00:00 meningococcal MCV4P 2018-02-23 Completed 00:00:00 hepatitis A vaccine, 2012-12-13 Completed [facility] 00:00:00 dosage, 2 dose schedule Boostrix 5-2.5-18.5 2012-12-13 Completed [facility] Intramuscular 00:00:00 Suspension Meningococcal, MCV4, 2012-12-13 Completed [facility] unspecified 00:00:00 conjugate formulation(groups A, C, Y and W-135) hepatitis A vaccine, 2007-04-27 Completed [facility] 00:00:00 dosage, 2 dose schedule Ipol Injection 2005-11-26 [facility] Injectable 00:00:00 DTP 2005-11-26 Completed [facility] 00:00:00 M-M-R II 2005-11-26 Completed [facility] Subcutaneous 00:00:00 Injectable Ipol Injection 2005-08-16 [facility]pleted [facility] Injectable 00:00:00 Ipol Injection 2004-08-30 [facility]pleted [facility] Injectable 00:00:00 DTP 2003-11-14 Completed [facility] 00:00:00 M-M-R II 2002-11-10 Completed [facility] Subcutaneous 00:00:00 Injectable Ipol Injection 2002-05-02 [facility]pleted [facility] Injectable 00:00:00 DTP 2002-05-02 Completed [facility] 00:00:00 Hepatitis B, 2002-05-02 [facility] 00:00:00 dosage Hib, Haemophilus 2002-05-02 [facility]pleted [facility] influenzae type b 00:00:00 vaccine, HbOC conjugate Ipol Injection 2002-02-28 [facility]pleted [facility] Injectable 00:00:00 DTP 2002-02-28 Completed [facility] 00:00:00 Hepatitis B, 2002-02-28 [facility]pleted [facility] 00:00:00 dosage Hib, Haemophilus 2002-02-28 [facility]pleted [facility] influenzae type b 00:00:00 vaccine, HbOC conjugate Ipol Injection 2001 [facility]pleted [facility] Injectable 00:00:00 DTP 2001 Completed [facility] 00:00:00 Hepatitis B, 2001 [facility]pleted [facility] 00:00:00 dosage Hib, Haemophilus 2001 Completed [facility] influenzae type b 00:00:00 vaccine, HbOC conjugate Ipol Injection 2001 [facility]pleted [facility] Injectable 00:00:00 Vital Signs Vital Name Observation Time Observation Value Comments Source Oxygen saturation in 2021-01-24 14:02:00 99 /min [facility] Arterial blood by [facility] Pulse oximetry Branch Systolic blood 2021-01-24 14:02:00 149 mm[Hg] Univer sity of pressure [place] [facility] [facility] Diastolic blood 2021-01-24 14:02:00 97 mm[Hg] Unive [facility] Heart rate 2021-01-24 14:02:00 60 /min [facility] Body temperature 2021-01-24 14:02:[address] [facility] 2021-01-24 14:02:00 18 /min [facility] Body weight 2021-01-24 14:02:00 53.071 kg [facility] BP Systolic 2022-05-01 17:19:00 149 mm[Hg] BP Diastolic 2022-05-01 17:19:00 87 mm[Hg] Weight Measured 2022-05-01 17:19:00 176.80 pounds Height Measured 2022-05-01 17:19:00 69.00 inches Body Temperature 2022-05-01 17:19:00 98.20 degrees Heart Rate 2022-05-01 17:19:00 67.00 /min Respiratory Rate 2022-05-01 17:19:00 BP Systolic 2022-05-01 16:57:00 149 mm[Hg] BP Diastolic 2022-05-01 16:57:00 87 mm[Hg] Weight Measured 2022-05-01 16:57:00 176.80 pounds Height Measured 2022-05-01 16:57:00 69.00 inches Body Temperature 2022-05-01 16:57:00 98.20 degrees Heart Rate 2022-05-01 16:57:00 67.00 /min Respiratory Rate 2022-05-01 16:57:00 18.00 /min Weight Measured 2022-04-24 10:10:00 175.20 pounds Height Measured 2022-04-24 10:10:00 69.00 inches Body Temperature 2022-04-24 10:10:00 97.60 degrees Heart Rate 2022-04-24 10:10:00 72.00 /min Respiratory Rate 2022-04-24 10:10:00 18.00 /min BP Systolic 2022-04-24 10:10:00 134 mm[Hg] BP Diastolic 2022-04-24 10:10:00 66 mm[Hg] BP Systolic 2020-04-09 16:36:00 128 mm[Hg] BP Diastolic 2020-04-09 16:36:00 84 mm[Hg] Weight Measured 2020-04-09 16:36:00 164.40 pounds Height Measured 2020-04-09 16:36:00 69.33 inches Body Temperature 2020-04-09 16:36:00 97.60 degrees Heart Rate 2020-04-09 16:36:00 96.00 /min Respiratory Rate 2020-04-09 16:36:00 16.00 /min Respitory Rate 2018-03-03 13:18:00 [facility] Systolic (mm Hg) 2018-03-03 13:18:00 Puneet rial [place] Diastolic (mm Hg) 2018-03-03 13:18:00 Mem [facility] [place] Systolic (mm Hg) 2018-03-03 09:00:00 Puneet rial [place] Diastolic (mm Hg) 2018-03-03 09:00:00 [facility] [place] Respitory Rate 2018-03-03 09:00:00 Memori al [place] Respitory Rate 2018-03-03 07:00:00 [facility] [place] Systolic (mm Hg) 2018-03-03 07:00:00 Puneet rial [place] Diastolic (mm Hg) 2018-03-03 07:00:00 [facility] [place] Height 2018-03-03 02:51:00 170 cm [facility] [place] BMI Calculated 2018-03-03 02:51:00 [facility] [place] Weight 2018-03-03 02:51:00 [facility] Weight 2018-03-02 15:00:00 [facility] BMI Calculated 2018-03-02 15:00:00 Mem[facility] [place] Height 2018-03-02 15:00:00 170.18 cm [facility] Temperature Oral (F) 2018-03-02 14:55:00 98.1 F [facility] Procedures Procedure Date / Time Performing Clinician Source Performed AUTHORIZATION FOR 2023-01-13 05:01:00 Doctor Unassigned, No [facility] RELEASE OF PHI [facility] ABDOMEN COMPLETE 2022-05-12 22:47:33 Requisition, Paper [facility] SCROTUM AND CONTENTS 2022-04-25 13:56:13 [facility]ENEF[facility] 2022-04-25 13:16:32 Doctor Unassigned, No [facility] Branch LIPASE 2021-01-24 14:21:00 Latonya Medrano [facility] HEPATIC FUNCTION PANEL 2021-01-24 14:21:00 Latonya Medrano [facility] ([id number]) (ALB,T.PRO,BILI Medical Branch T,BU/BC,ALT,AST,ALK PHOS) BASIC METABOLIC PANEL 2021-01-24 14:21:00 Latonya Medrano [facility] (NA, K, CL, CO2, Medical Branch GLUCOSE, BUN, CREATININE, CA) CBC WITH DIFF 2021-01-24 14:21:00 Latonya Medrano [facility] NOTICE OF PRIVACY 2021-01-24 13:57:25 Doctor Unassigned, No [facility] PRACTICES Name [facility] Plan of Care Planned Activity Planned Date Details Comments Source Goal Plan of Care Note [code = 46478-1] Goal Plan of Care Note [code = 50890-3] Goal Plan of Care Note [code = 54160-8] Goal Plan of Care Note [code = 07462-9] Goal Plan of Care Note [code = 38889-3] Goal Plan of Care Note [code = 90936-5] Goal Plan of Care Note [code = 68086-3] Goal Plan of Care Note [code = 00450-1] Goal Plan of Care Note [code = 50260-9] Goal Plan of Care Note [code = 68973-6] Encounters Start End Encounter Admission Attending Care Care Encounter Source Date/Time Date/Time Type Type Clinicians Facility Department ID 2023-01-14 Outpatient RICHI Marlow [facility] [id number] Common 09:03:00 Oliva [facility] [facility] 2022-10-01 [facility] [id number] Common 10:21:01 Oliva [address] [facility] 2023-01-27 2023-01-27 Outpatient SFA SFA [id number] Angel 07:54:47 07:54:47 0801 F [place] 2023-01-19 2023-01-19 Outpatient SFA SFA [id number] Angel 13:02:02 13:02:02 0724 F [place] 2023-01-13 2023-01-13 Orders Doctor MCNALLY [id number] Univers 00:00:00 00:00:00 Only Unassigned, FAVIOLA 350.1.13.10 ity of [place] [facility] 4.2.7.2.686 Lukasz [id number] [facility] 009 Branch 2022-08-04 2022-08-04 Outpatient [facility] [id number] Angel 10:19:53 10:19:53 0206 F Bolton 2022-05-12 2022-05-12 [facility] Radiology [facility] 1.2.840.114 [id number] Univers 15:57:33 23:59:00 Encounter [place] 350.1.13.10 ity [facility] 4.2.7.2.686 [facility] [id number] [facility] 806 Branch 2022-05-12 2022-05-12 Outpatient R RADIOLOGY [facility] [id number] Univers 15:56:36 15:56:36 ity [facility] 2022-05-12 2022-05-12 [facility] Radiology [facility] 1.2.840.114 [id number] Univers 15:56:36 15:56:36 Encounter [place] 350.1.13.10 ity [facility] 4.2.7.2.686 [facility] [id number] [facility] 806 Branch 2022-05-01 2022-05-01 Outpatient [facility] [id number] Angel 17:18:11 17:18:11 1103 F [place] 2022-05-01 2022-05-01 Outpatient [id number] 00:00:00 00:00:00 Visit [id number] 2022-04-30 2022-04-30 Outpatient [facility] [id number] Angel 13:36:06 13:36:06 1102 F [place] 2022-04-25 2022-04-25 Outpatient R RADIOLOGY [facility] [id number] Univers 08:21:10 23:59:00 ity [facility] 2022-04-25 2022-04-25 [facility] Radiology [facility] 1.2.840.114 [id number] Univers 08:21:10 23:59:00 Encounter [place] 350.1.13.10 ity [facility] 4.2.7.2.686 [facility] [id number] [facility] 806 Branch 2022-04-25 2022-04-25 Orders Doctor [facility] 1.2.840.114 [id number] Univers 00:00:00 00:00:00 Only Unassigned, FAVIOLA 350.1.13.10 ity of [place] [facility] 4.2.7.2.686 [facility] [id number] [facility] 009 Branch 2022-04-24 2022-04-24 Outpatient SFA SFA [id number] 022 Angel 10:18:46 10:18:46 1027 F [place] 2022-04-24 2022-04-24 Outpatient [id number] 00:00:00 00:00:00 Visit [id number] -[id number] 2022-01-07 2022-01-07 Outpatient MIC [facility]00 11:22:00 [facility] 2021-01-24 2021-01-24 Emergency [place], [facility] 1.2.840.114 [id number] Univers 09:04:00 10:58:00 Latonya Carranza 350.1.13.10 ity [place] 4.2.7.2.686 [facility] [id number] [facility] 084 Branch 2021-01-24 2021-01-24 Emergency X [facility] ERT [id number] Univers 08:57:00 08:57:00 ity of [facility] 2018-04-08 2018-05-08 OP Therapy nullFlavo [facility] [id number] Memoria 22:00:00 05:59:00 Patients r 00 l Larry 2018-04-08 2018-05-08 OP Therapy nullFlavo [facility] [id number] Memoria 22:00:00 05:59:00 Patients r 00 l Larry 2018-04-08 2018-05-07 Outpatient Elvin 2.16.840. [id number]. [id number] 17:00:00 23:59:00 Jada Crowley [id number] 5.62 2018-03-12 2018-03-12 Appointmen DANNIELLE ANTONIO [facility] [id number] [place] 11:00:00 11:00:00 gilberto ELIAS M.D. Phy мария Gallagher M.D. 2018-03-02 2018-03-03 Observatio nullFlavo [facility] [id number] Memoria 15:00:00 23:00:00 n inder Juarez [address] [facility] 2018-03-02 2018-03-03 Observatio nullFlavo [facility] [id number] [id number] Memoria 15:00:00 23:00:00 n inder Juarez 67 [facility] 2018-03-02 2018-03-[address] [facility] [id number] 10:00:00 18:00:00 Jada Andino Results Test Description Test Time Test Comments Results Result Comments Source HEPATIC FUNCTION PANEL (92617) (ALB,T.PRO,BILI 2021-01-24 15 :23:58 T,BU/BC,ALT,AST,ALK PHOS) Test Item Value Reference Range Interpretation Comme nts TOTAL BILI (test code = 1082539629) 0.6 mg/dL 0.1-1.1 BILI UNCON (test code = 3424308331) 0.4 mg/dL 0.1-1.1 BILI CONJ (test code = 5159477256) 0.0 mg/dL 0.0-0.3 T PROTEIN (test code = 0261854199) 8.7 g/dL 6.3-8.2 H ALBUMIN (test code = 1958538107) 5.0 g/dL 3.5-5.0 ALK PHOS (test code = 4166905866) 89 U/L 34-122 ALTv (test code = 1742-6) 15 U/L 5-50 AST(SGOT) (test code = 2978480385) 55 U/L 13-40 H Lab Interpretation (test code = 19470-4) Abnormal [facility] METABOLIC PANEL (NA, K, CL, CO2, GLUCOSE, BUN, CREATININE, CA)2021-01-24 15:23:57 Test Item Value Reference Range Interpretation Comments NA (test code = 140 mmol/L 135-145 0376402909) K (test code = 4.7 mmol/L 3.5-5.0 6856621507) CL (test code = 103 mmol/L 98-108 7302764201) CO2 TOTAL (test code 25 mmol/L 23-31 = 3216106581) AGAP (test code = 2-16 7526210697) BUN (test code = 11 mg/dL 7-23 1377076652) GLUCOSE (test code = 96 mg/dL 70-110 7006803924) CREATININE (test code 0.70 mg/dL 0.60-1.25 = 1458585025) CALCIUM (test code = 10.1 mg/dL 8.6-10.6 9223272654) eGFR (test code = mL/min/1.73m2 9227788553) SHANTHI (test code = SHANTHI) Association of Glomerular Filtration Rate (GFR) and Staging of Kidney Disease* + + +- +| GFR (mL/min/1.73 m2) ?| With Kidney Damage ?| ?Without Kidney Damage+ ------+ ----+ ------+| ?>90 ?| ?Stage one ?| ? Normal ?+ -+ + -+| ?60-89 ?| ?Stage two ?| ? Decreased GFR ? + + +- +| ?30-59 ?| ?Stage three ?| ? Stage three ? + + +- +| ?15-29 ?| ?Stage four ? | ? Stage four ?+ -+ + -+| ?<15 (or dialysis) ? ?| ?Stage five ? | ? Stage five ?+ -+ + -+ *Each stage assumes the associated GFR level has been in effect for at least three months. ?Stages 1 to 5, with or without kidney disease, indicate chronic kidney disease. Notes: Determination of stages one and two (with eGFR >59mL/min/1.73 m2) requires estimation of kidney damage for at least three months as defined by structural or functional abnormalities of the kidney, manifested by either:Pathological abnormalities or Markers of kidney damage (including abnormalities in the composition of the blood or urine or abnormalities in imaging tests). [facility] 15:23:57 Test Item Value Reference Range Interpretation Comments LIPASE (test code = 9249718652) 42 U/L 0-220 Lab Interpretation (test code = Normal 70916-5) [facility] QZDB9985-91-63 15:00:33 Test Item Value Reference Range Interpretation Comments WBC (test code = See_Comment H [Automated 1390-2) message] The system which generated this result transmit thong reference range : 4.20 - 10.70 10*3/?L. The reference range was not used to interpret this result as normal/abnormal . RBC (test code = See_Comment [Automated 789-8) message] The system which generated this result transmit thong reference range : 4.26 - 5.52 10*6/?L. The reference range was not used to interpret this result as normal/abnormal . HGB (test code = 15.9 g/dL 12.2-16.4 718-7) HCT (test code = 48.0 % 38.4-49.3 4544-3) MCV (test code = 88.4 fL 81.7-95.6 787-2) MCH (test code = 29.3 pg 26.1-32.7 785-6) MCHC (test code = 33.1 g/dL 31.2-35.0 786-4) RDW-SD (test code = 43.8 fL 38.5-51.6 96514-3) RDW-CV (test code = 13.6 % 12.1-15.4 788-0) PLT (test code = See_Comment [Automated 777-3) message] The system which generated this result transmit thong reference range : 150 - 328 10*3/ ?L. The reference range was not u sed to interpret th is result as normal/abnormal . MPV (test code = 11.6 fL 9.8-13.0 40003-1) NRBC/100 WBC (test See_Comment [Automat ed code = 1734101591) message] The system which generated this result transmit thong reference range : 0.0 - 10.0 /100 WBCs. The reference range was not used to interpret this result as normal/abnormal . NRBC x10^3 (test code <0.01 See_Comment [Auto mated = 5304568654) message] The system which generated this result transmit thong reference range : 10*3/?L. The reference range was not used to interpret this result as normal/abnormal . GRAN MAT (NEUT) % 78.8 % (test code = 770-8) IMM GRAN % (test code 0.40 % = 0062138163) LYMPH % (test code = 13.4 % 736-9) MONO % (test code = 6.5 % 5905-5) EOS % (test code = 0.5 % 713-8) BASO % (test code = 0.4 % 706-2) GRAN MAT x10^3(ANC) 10.00 10*3/uL 1.99-6.95 H (test code = 8781456863) IMM GRAN x10^3 (test 0.05 10*3/uL 0.00-0.06 code = 8869816515) LYMPH x10^3 (test code 1.70 10*3/uL 1.09-3.23 = 731-0) MONO x10^3 (test code 0.83 10*3/uL 0.36-1.02 = 742-7) EOS x10^3 (test code = 0.06 10*3/uL 0.06-0.53 711-2) BASO x10^3 (test code 0.05 10*3/uL 0.01-0.09 = 704-7) Lab Interpretation Abnormal (test code = 97904-2) [facility] [id number] 15:18:00 Test Item Value Reference Range Interpretation Comments Antibody Scrn (test Negative (03/02/18 10:18 code = Antibody Scrn) AM) [facility] gridComm VWUCGTK8681-92-33 15:18:00 Test Item Value Reference Range Interpretation Comments ABO/Rh (test code = ABO/Rh) O POS [facility] ImflaugJXXYLGAXPKIS6648-75-95 15:18:00 Test Item Value Reference Range Interpretation Comments AGAP (test code = AGAP) 11.9 10.0-20.[address] [facility] JjmgqtrTJKWLSXYIWIN2380-65-81 15:18:00 Test Item Value Reference Range Interpretation Comments eGFR (test code = eGFR) 77 [facility]91 15:18:00 Test Item Value Reference Range Interpretation Comments Creatinine Lvl (test code = Creatinine 0.91 0.50-1.40 Lvl) [facility]gcwdvmISWGNKMGNHJB3878-25-35 15:18:00 Test Item Value Reference Range Interpretation Comments Chloride Lvl (test code = Chloride Lvl) 104 95-109 [facility]AdlwjohMWNUXAVFUNZD3232-91-21 15:18:00 Test Item Value Reference Range Interpretation Comments CO2 (test code = CO2) 26 24-32 [facility]ViuolctSCQQGQRZJJTB0731-46-55 15:18:00 Test Item Value Reference Range Interpretation Comments Calcium Lvl (test code = Calcium Lvl) 9.6 8.5-10.5 [facility]MkfqleuACNBJQCHCZPX1850-56-71 15:18:00 Test Item Value Reference Range Interpretation Comments Sodium Lvl (test code = Sodium Lvl) 138 135-145 [facility]ombWawejvfDOICKOHUSPBD0944-69-55 15:18:00 Test Item Value Reference Range Interpretation Comments Potassium Lvl (test code = Potassium 3.9 3.5-5.1 Lvl) [facility]HdvikgxDDNSKJLQMMLZ8142-88-91 15:18:00 Test Item Value Reference Range Interpretation Comments BUN (test code = BUN) 12 7-22 [facility]LhdifmyRCGOJAZWIWHJ2339-34-11 15:18:00 Test Item Value Reference Range Interpretation Comments Glucose Lvl (test code = Glucose Lvl) 102 70-99 [facility]OdnobvlVPSEASJFDT7305-55-92 15:18:00 Test Item Value Reference Range Interpretation Comments Neutrophils # (test code = Neutrophils 7.3 1.5-8.1 #) [facility] HospitalHcdsyhmHTYWTBSBRQ5414-19-92 15:18:00 Test Item Value Reference Range Interpretation Comments Lymphocytes # (test code = Lymphocytes 1.4 1.0-5.5 #) [facility] HospitalRdtbawaEIQXLHHQBW3036-25-27 15:18:00 Test Item Value Reference Range Interpretation Comments Basophils (test code = 0.4 See_Comment [Aut omated message] The Basophils) system which ge nerated this result tra nsmitted reference range : <=1.0. The reference r taj was not used to int erpret this result as normal/abnormal . [facility] HospitalXvtgrozKWWSOUVOUN4049-26-35 15:18:00 Test Item Value Reference Range Interpretation Comments Monocytes # (test code 0.8 See_Comment [Aut omated message] The = Monocytes #) system which generated this result tra nsmitted reference range : <=0.8. The reference r taj was not used to int erpret this result as normal/abnormal . [facility] HospitalUgkzginVORWIXLJCP9277-60-08 15:18:00 Test Item Value Reference Range Interpretation Comments Lymphocytes (test code = Lymphocytes) 14.2 20.0-40.0 [facility] HospitalLjhkgipNREWPWMSPJ2421-10-73 15:18:00 Test Item Value Reference Range Interpretation Comments Monocytes (test code = Monocytes) 8.7 2.0-12.0 [facility] HospitalSjqsmolOTHRXHWBQU9849-17-50 15:18:00 Test Item Value Reference Range Interpretation Comments Eosinophils (test code = 0.3 See_Comment [A utomated message] The Eosinophils) system which ge nerated this result tra nsmitted reference range : <=4.0. The reference r taj was not used to int erpret this result as normal/abnormal . [facility] HospitalJvosuldAFBIEDUUXY8865-44-35 15:18:00 Test Item Value Reference Range Interpretation Comments Segs (test code = Segs) 76.4 45.0-75.0 [facility] HospitalZssgdumAXTFUCEBPY8595-28-17 15:18:00 Test Item Value Reference Range Interpretation Comments PTT (test code = PTT) 33.7 s 22.9-35.8 [facility] HospitalAartgydKQGTBBDUCR4649-63-76 15:18:00 Test Item Value Reference Range Interpretation Comments INR (test code = INR) 1.08 1 0.85-1.17 [facility] HospitalQxtezttVFEWALJNTS7490-62-45 15:18:00 Test Item Value Reference Range Interpretation Comments PT (test code = PT) 14.0 s 12.0-14.7 [facility] HospitalVfvnrtyJRSHKWOAWP9317-40-53 15:18:00 Test Item Value Reference Range Interpretation Comments MPV (test code = MPV) 9.5 7.4-10.4 [facility] HospitalIuybgfoPPFRFPAPNE7634-24-02 15:18:00 Test Item Value Reference Range Interpretation Comments MCHC (test code = MCHC) 33.8 32.0-36.0 [facility] HospitalEhxgdyzVDLMNLKJRQ7651-67-99 15:18:00 Test Item Value Reference Range Interpretation Comments RDW (test code = RDW) 14.0 11.5-14.5 [facility] HospitalIiulkotLKTVRGCFEK9008-81-04 15:18:00 Test Item Value Reference Range Interpretation Comments MCH (test code = MCH) 29.1 pg 27.0-31.0 [facility] HospitalTqfujccQRQXQSSLRH9730-51-79 15:18:00 Test Item Value Reference Range Interpretation Comments Platelet (test code = Platelet) 232 133-450 [facility] HospitalVqpwlidTCQKWQTMDJ1687-33-22 15:18:00 Test Item Value Reference Range Interpretation Comments Hct (test code = Hct) 44.1 42.0-54.0 [facility] HospitalBfbmrjrBYWZVHMYRB4842-90-05 15:18:00 Test Item Value Reference Range Interpretation Comments MCV (test code = MCV) 86.3 80.0-94.0 [facility] HospitalEiuquzxNJESPWRJKR5151-84-13 15:18:00 Test Item Value Reference Range Interpretation Comments RBC (test code = RBC) 5.11 4.70-6.10 [facility] HospitalZdmzrvxNYCZLQREGV7992-27-00 15:18:00 Test Item Value Reference Range Interpretation Comments Hgb (test code = Hgb) 14.9 14.0-18.0 [facility] HospitalNiffwvyDMKHETWUYT4364-60-18 15:18:00 Test Item Value Reference Range Interpretation Comments WBC (test code = WBC) 9.5 3.7-10.4 [facility] RFYYKEG4518-65-50 15:18:00 Test Item Value Reference Range Interpretation Comments Antibody Scrn (test Negative (03/02/18 10:18 code = Antibody Scrn) AM) [facility] QCEKDHT4552-09-34 15:18:00 Test Item Value Reference Range Interpretation Comments ABO/Rh (test code = ABO/Rh) O POS [facility]cgcdwlQHAHDRNBTUJL4089-85-05 15:18:00 Test Item Value Reference Range Interpretation Comments AGAP (test code = AGAP) 11.9 10.0-20.0 [facility]OwoihtvBHYIWREJLDXB7417-47-99 15:18:00 Test Item Value Reference Range Interpretation Comments eGFR (test code = eGFR) 77 [facility] NhfbqdfURTTGVCAHKGF6023-12-77 15:18:00 Test Item Value Reference Range Interpretation Comments Creatinine Lvl (test code = Creatinine 0.91 0.50-1.40 Lvl) [facility]OkupzkqRNKULIVQLRFH0060-02-33 15:18:00 Test Item Value Reference Range Interpretation Comments Chloride Lvl (test code = Chloride Lvl) 104 95-109 [facility]ombKlhvpceJKCNCEOXKAES8906-15-86 15:18:00 Test Item Value Reference Range Interpretation Comments CO2 (test code = CO2) 26 24-32 [facility]ombYvkywdlBBTPAMTZDLHP0253-22-89 15:18:00 Test Item Value Reference Range Interpretation Comments Calcium Lvl (test code = Calcium Lvl) 9.6 8.5-10.5 [facility]PgmlvxtVLLOFDQPCCPK6584-61-49 15:18:00 Test Item Value Reference Range Interpretation Comments Sodium Lvl (test code = Sodium Lvl) 138 135-145 [facility]ombWwcgzgcPMZLANTYEAAJ9769-49-59 15:18:00 Test Item Value Reference Range Interpretation Comments Potassium Lvl (test code = Potassium 3.9 3.5-5.1 Lvl) [facility]KtuynonKOFTGIMFAOLY9649-95-73 15:18:00 Test Item Value Reference Range Interpretation Comments BUN (test code = BUN) 12 7-22 [facility]KgocameHQFSMFKNCZOZ5437-57-79 15:18:00 Test Item Value Reference Range Interpretation Comments Glucose Lvl (test code = Glucose Lvl) 102 70-99 [facility] HospitalWwcbmahBVUJFQXNSH8263-78-31 15:18:00 Test Item Value Reference Range Interpretation Comments Neutrophils # (test code = Neutrophils 7.3 1.5-8.1 #) [facility] HospitalDonobyiXTKFRNCHGW5155-73-60 15:18:00 Test Item Value Reference Range Interpretation Comments Lymphocytes # (test code = Lymphocytes 1.4 1.0-5.5 #) [facility] HospitalUkiqekeJGQRODJBQW5088-10-89 15:18:00 Test Item Value Reference Range Interpretation Comments Basophils (test code = 0.4 See_Comment [Aut omated message] The Basophils) system which ge nerated this result tra nsmitted reference range : <=1.0. The reference r taj was not used to int erpret this result as normal/abnormal . [facility] HospitalHtuybznCHFOJVUDYV1205-89-93 15:18:00 Test Item Value Reference Range Interpretation Comments Monocytes # (test code 0.8 See_Comment [Aut omated message] The = Monocytes #) system which generated this result tra nsmitted reference range : <=0.8. The reference r taj was not used to int erpret this result as normal/abnormal . [facility] HospitalYfkycnlDQGVXXCILU1051-47-14 15:18:00 Test Item Value Reference Range Interpretation Comments Lymphocytes (test code = Lymphocytes) 14.2 20.0-40.0 [facility] HospitalNgfuagxTABXTUUQES9905-98-39 15:18:00 Test Item Value Reference Range Interpretation Comments Monocytes (test code = Monocytes) 8.7 2.0-12.0 [facility] HospitalXsyvmqsWQWUKMPYYX7201-66-25 15:18:00 Test Item Value Reference Range Interpretation Comments Eosinophils (test code = 0.3 See_Comment [A utomated message] The Eosinophils) system which ge nerated this result tra nsmitted reference range : <=4.0. The reference r taj was not used to int erpret this result as normal/abnormal . [facility] HospitalWplzlsxPTNOXODEBH4784-15-81 15:18:00 Test Item Value Reference Range Interpretation Comments Segs (test code = Segs) 76.4 45.0-75.0 [facility] HospitalNtyjzulULCQULRPXR2727-32-48 15:18:00 Test Item Value Reference Range Interpretation Comments PTT (test code = PTT) 33.7 s 22.9-35.8 [facility] HospitalRfplmknMGEHCPGJUF6206-88-85 15:18:00 Test Item Value Reference Range Interpretation Comments INR (test code = INR) 1.08 1 0.85-1.17 [facility] HospitalJkkrmmfGYDNHVUNJE6065-93-34 15:18:00 Test Item Value Reference Range Interpretation Comments PT (test code = PT) 14.0 s 12.0-14.7 [facility] [facility]zensDDJKFJFJCY9157-68-94 15:18:00 Test Item Value Reference Range Interpretation Comments MPV (test code = MPV) 9.5 7.4-10.4 [facility] HospitalAezkbxaCRMHILPNWI8079-15-51 15:18:00 Test Item Value Reference Range Interpretation Comments MCHC (test code = MCHC) 33.8 32.0-36.0 [facility] HospitalKvnhupdKHMSKWSKHF8062-56-91 15:18:00 Test Item Value Reference Range Interpretation Comments RDW (test code = RDW) 14.0 11.5-14.5 [facility] HospitalTvikhaiBTBPNBBXKG4483-77-36 15:18:00 Test Item Value Reference Range Interpretation Comments MCH (test code = MCH) 29.1 pg 27.0-31.0 [facility] HospitalUwoeouiKZWLUGVTPA3206-43-15 15:18:00 Test Item Value Reference Range Interpretation Comments Platelet (test code = Platelet) 232 133-450 [facility] HospitalWjoiploLOBFIOYNOH2675-34-37 15:18:00 Test Item Value Reference Range Interpretation Comments Hct (test code = Hct) 44.1 42.0-54.0 [facility] HospitalVgnonpvVNAODFXPIK5249-59-74 15:18:00 Test Item Value Reference Range Interpretation Comments MCV (test code = MCV) 86.3 80.0-94.0 [facility] HospitalQburqbsKWDGVPENJN3035-80-34 15:18:00 Test Item Value Reference Range Interpretation Comments RBC (test code = RBC) 5.11 4.70-6.10 [facility] HospitalHajhuwmVPUMRVESVD3902-47-64 15:18:00 Test Item Value Reference Range Interpretation Comments Hgb (test code = Hgb) 14.9 14.0-18.0 [facility] HospitalPgyognoKGJIMCXHVO6260-56-94 15:18:00 Test Item Value Reference Range Interpretation Comments WBC (test code = WBC) 9.5 3.7-10.4 [facility] SWJIFYJ1323-74-30 15:18:00 Test Item Value Reference Range Interpretation Comments Antibody Scrn (test Negative (03/02/18 10:18 code = Antibody Scrn) AM) [facility] UPZABEI9465-94-20 15:18:00 Test Item Value Reference Range Interpretation Comments ABO/Rh (test code = ABO/Rh) [facility]EG[facility]DFK[facility]843[facility]-68 15:18:00 Test Item Value Reference Range Interpretation Comments AGAP (test code = AGAP) 11.9 10.0-20.0 [facility]ZyrhuhjVGZHMHCMUTKA8150-50-16 15:18:00 Test Item Value Reference Range Interpretation Comments eGFR (test code = eGFR) 77 [facility]NpbbggrFVGPNSTSLXSG9556-26-19 15:18:00 Test Item Value Reference Range Interpretation Comments Creatinine Lvl (test code = Creatinine 0.91 0.50-1.40 Lvl) [facility]NdbkbmwRJTUYNZAUJVR8456-42-88 15:18:00 Test Item Value Reference Range Interpretation Comments Chloride Lvl (test code = Chloride Lvl) 104 95-109 [facility]JanownaGJIGYPFWZESX7083-50-73 15:18:00 Test Item Value Reference Range Interpretation Comments CO2 (test code = CO2) 26 24-32 [facility]FtojfznIWVHQBZAQOWB9112-34-23 15:18:00 Test Item Value Reference Range Interpretation Comments Calcium Lvl (test code = Calcium Lvl) 9.6 8.5-10.5 [facility]GbnihxdCQNYQUWRQYVU5537-33-07 15:18:00 Test Item Value Reference Range Interpretation Comments Sodium Lvl (test code = Sodium Lvl) 138 135-145 [facility]TafjvnkFCVMOCAHNAVM4948-40-87 15:18:00 Test Item Value Reference Range Interpretation Comments Potassium Lvl (test code = Potassium 3.9 3.5-5.1 Lvl) [facility]AzrhmraOMXWOZMFFVWM6657-11-35 15:18:00 Test Item Value Reference Range Interpretation Comments BUN (test code = BUN) 12 7-22 [facility]KdjokpgNPLFLCMKEQDC3560-18-80 15:18:00 Test Item Value Reference Range Interpretation Comments Glucose Lvl (test code = Glucose Lvl) 102 70-99 [facility] HospitalIulnkwzDFJIZXBCNL3021-10-33 15:18:00 Test Item Value Reference Range Interpretation Comments Neutrophils # (test code = Neutrophils 7.3 1.5-8.1 #) [facility] HospitalUrbqxcaRNYFVXYMMR7417-08-30 15:18:00 Test Item Value Reference Range Interpretation Comments Lymphocytes # (test code = Lymphocytes 1.4 1.0-5.5 #) [facility] HospitalNeciuqaNQPFAHWISU7998-98-20 15:18:00 Test Item Value Reference Range Interpretation Comments Basophils (test code = 0.4 See_Comment [Aut omated message] The Basophils) system which ge nerated this result tra nsmitted reference range : <=1.0. The reference r taj was not used to int erpret this result as normal/abnormal . [facility] HospitalLkhucqbDGNQDLCFVG3872-45-01 15:18:00 Test Item Value Reference Range Interpretation Comments Monocytes # (test code 0.8 See_Comment [Aut omated message] The = Monocytes #) system which generated this result tra nsmitted reference range : <=0.8. The reference r taj was not used to int erpret this result as normal/abnormal . [facility] HospitalTdztkvfALVATANZQN2511-98-25 15:18:00 Test Item Value Reference Range Interpretation Comments Lymphocytes (test code = Lymphocytes) 14.2 20.0-40.0 [facility] HospitalOnzdgtmLRWKGEJRBV1833-09-55 15:18:00 Test Item Value Reference Range Interpretation Comments Monocytes (test code = Monocytes) 8.7 2.0-12.0 [facility] HospitalWhjtituZSGBYXAXIO1738-03-14 15:18:00 Test Item Value Reference Range Interpretation Comments Eosinophils (test code = 0.3 See_Comment [A utomated message] The Eosinophils) system which ge nerated this result tra nsmitted reference range : <=4.0. The reference r taj was not used to int erpret this result as normal/abnormal . [facility] HospitalTlbxxrmOJAMLASGUI1505-48-77 15:18:00 Test Item Value Reference Range Interpretation Comments Segs (test code = Segs) 76.4 45.0-75.0 [facility] HospitalWoekqcdSTRRNWBWLR4352-04-91 15:18:00 Test Item Value Reference Range Interpretation Comments PTT (test code = PTT) 33.7 s 22.9-35.8 [facility] HospitalIstvqujSKJNJDGLRL2961-24-22 15:18:00 Test Item Value Reference Range Interpretation Comments INR (test code = INR) 1.08 1 0.85-1.17 [facility] HospitalGrsgketBDOCEGQVBB5856-97-19 15:18:00 Test Item Value Reference Range Interpretation Comments PT (test code = PT) 14.0 s 12.0-14.7 [facility] HospitalZfnvvzoPXXJRNTSYD8725-68-58 15:18:00 Test Item Value Reference Range Interpretation Comments MPV (test code = MPV) 9.5 7.4-10.4 [facility] HospitalRxzrrzoAZPROIZXBF0815-13-26 15:18:00 Test Item Value Reference Range Interpretation Comments MCHC (test code = MCHC) 33.8 32.0-36.0 [facility] HospitalKwstnggGNJJGEAYYM0906-01-00 15:18:00 Test Item Value Reference Range Interpretation Comments RDW (test code = RDW) 14.0 11.5-14.5 [facility] HospitalEraworzENXAGWIQXU8417-00-69 15:18:00 Test Item Value Reference Range Interpretation Comments MCH (test code = MCH) 29.1 pg 27.0-31.0 [facility] HospitalHydbjucJIYEYIPHXO3551-44-91 15:18:00 Test Item Value Reference Range Interpretation Comments Platelet (test code = Platelet) 232 133-450 [facility] HospitalAichkpkCDGXYFFGQA1313-51-44 15:18:00 Test Item Value Reference Range Interpretation Comments Hct (test code = Hct) 44.1 42.0-54.0 [facility] HospitalLbimxbtQJRMOINABJ2117-60-26 15:18:00 Test Item Value Reference Range Interpretation Comments MCV (test code = MCV) 86.3 80.0-94.0 [facility] HospitalWxufxpsTZJWDPFBNR6261-15-29 15:18:00 Test Item Value Reference Range Interpretation Comments RBC (test code = RBC) 5.11 4.70-6.10 [facility] HospitalGscwdgqTQXODKPNGK8531-95-49 15:18:00 Test Item Value Reference Range Interpretation Comments Hgb (test code = Hgb) 14.9 14.0-18.0 [facility] HospitalAcbugzlAKHBXQFVQI9849-40-05 15:18:00 Test Item Value Reference Range Interpretation Comments WBC (test code = WBC) 9.5 3.7-10.4 [facility]School[facility] PBMEGLF1729-05-35 15:18:00 Test Item Value Reference Range Interpretation Comments Antibody Scrn (test Negative (03/02/18 10:18 code = Antibody Scrn) AM) [facility] RBEYKGD0896-97-47 15:18:00 Test Item Value Reference Range Interpretation Comments ABO/Rh (test code = ABO/Rh) O POS [facility]WidfhygHTIJNFOHFUYN6329-36-32 15:18:00 Test Item Value Reference Range Interpretation Comments AGAP (test code = AGAP) 11.9 10.0-20.0 [facility]ombZkuyjesHGLIJFQLOMKD6534-67-85 15:18:00 Test Item Value Reference Range Interpretation Comments eGFR (test code = eGFR) 77 [facility]KcttcszQEZNGTKVPIWX9360-78-44 15:18:00 Test Item Value Reference Range Interpretation Comments Creatinine Lvl (test code = Creatinine 0.91 0.50-1.40 Lvl) [facility]ombTuakqvgTWBMTIHQNOOJ1101-82-30 15:18:00 Test Item Value Reference Range Interpretation Comments Chloride Lvl (test code = Chloride Lvl) 104 95-109 [facility]TfdfzvpGFFZLCDACTUZ1491-02-28 15:18:00 Test Item Value Reference Range Interpretation Comments CO2 (test code = CO2) 26 24-32 [facility]ombZaczzkwBCIIWZMYIXFU5899-46-88 15:18:00 Test Item Value Reference Range Interpretation Comments Calcium Lvl (test code = Calcium Lvl) 9.6 8.5-10.5 [facility]ombTejggwsLIMVICCBAXED5777-76-45 15:18:00 Test Item Value Reference Range Interpretation Comments Sodium Lvl (test code = Sodium Lvl) 138 135-145 [facility]ombRpdodkxNOBYFMHWMULM4701-20-72 15:18:00 Test Item Value Reference Range Interpretation Comments Potassium Lvl (test code = Potassium 3.9 3.5-5.1 Lvl) [facility]XjiwtvkRIOYWFUYDBXY2051-68-00 15:18:00 Test Item Value Reference Range Interpretation Comments BUN (test code = BUN) 12 7-22 [facility]WxvysfeEEEXAFKFPHGR4480-52-63 15:18:00 Test Item Value Reference Range Interpretation Comments Glucose Lvl (test code = Glucose Lvl) 102 70-99 [facility] HospitalQldvjlbZDTRDJFPVY1896-13-76 15:18:00 Test Item Value Reference Range Interpretation Comments Neutrophils # (test code = Neutrophils 7.3 1.5-8.1 #) [facility] HospitalQxvpozpBBEGBFCYPA0226-62-88 15:18:00 Test Item Value Reference Range Interpretation Comments Lymphocytes # (test code = Lymphocytes 1.4 1.0-5.5 #) [facility] HospitalZtnfgfiAYWBJUPCIV7575-21-37 15:18:00 Test Item Value Reference Range Interpretation Comments Basophils (test code = 0.4 See_Comment [Aut omated message] The Basophils) system which ge nerated this result tra nsmitted reference range : <=1.0. The reference r taj was not used to int erpret this result as normal/abnormal . [facility] HospitalAxoisolPOYOVJSRXA3913-56-75 15:18:00 Test Item Value Reference Range Interpretation Comments Monocytes # (test code 0.8 See_Comment [Aut omated message] The = Monocytes #) system which generated this result tra nsmitted reference range : <=0.8. The reference r taj was not used to int erpret this result as normal/abnormal . [facility] HospitalNphuuveQPFGZIZZKN8432-69-12 15:18:00 Test Item Value Reference Range Interpretation Comments Lymphocytes (test code = Lymphocytes) 14.2 20.0-40.0 [facility] HospitalPgbumbpXHXKPXFGQQ9236-61-21 15:18:00 Test Item Value Reference Range Interpretation Comments Monocytes (test code = Monocytes) 8.7 2.0-12.0 [facility] HospitalJplkfsdHSHCSUJQAG9963-44-54 15:18:00 Test Item Value Reference Range Interpretation Comments Eosinophils (test code = 0.3 See_Comment [A utomated message] The Eosinophils) system which ge nerated this result tra nsmitted reference range : <=4.0. The reference r taj was not used to int erpret this result as normal/abnormal . [facility] HospitalGvdchozOZWXWXJRJK3075-23-00 15:18:00 Test Item Value Reference Range Interpretation Comments Segs (test code = Segs) 76.4 45.0-75.0 [facility] HospitalJviedxuMUNSXICOIX6441-29-32 15:18:00 Test Item Value Reference Range Interpretation Comments PTT (test code = PTT) 33.7 s 22.9-35.8 [facility] HospitalAvqwusqEVVQADXEBJ0462-38-09 15:18:00 Test Item Value Reference Range Interpretation Comments INR (test code = INR) 1.08 1 0.85-1.17 [facility] HospitalApyorpmJHPQXORZIM0575-56-27 15:18:00 Test Item Value Reference Range Interpretation Comments PT (test code = PT) 14.0 s 12.0-14.7 [facility] HospitalQxdkddkRAUCWPSILP7479-79-39 15:18:00 Test Item Value Reference Range Interpretation Comments MPV (test code = MPV) 9.5 7.4-10.4 [facility] HospitalEwflyzcXFMEEHCIDP9772-54-81 15:18:00 Test Item Value Reference Range Interpretation Comments MCHC (test code = MCHC) 33.8 32.0-36.0 [facility] HospitalHwnkejhEVLIKJTASJ4817-78-66 15:18:00 Test Item Value Reference Range Interpretation Comments RDW (test code = RDW) 14.0 11.5-14.5 [facility] HospitalAbdyzdcTRHVYBFEUB1446-89-20 15:18:00 Test Item Value Reference Range Interpretation Comments MCH (test code = MCH) 29.1 pg 27.0-31.0 [facility] HospitalKkkzcubQIEITOMLPZ1505-65-70 15:18:00 Test Item Value Reference Range Interpretation Comments Platelet (test code = Platelet) 232 133-450 [facility] HospitalFufhzinQGJFNZLSOM6929-77-55 15:18:00 Test Item Value Reference Range Interpretation Comments Hct (test code = Hct) 44.1 42.0-54.0 [facility] HospitalUuxsuujFJGWXNNVGR9651-42-93 15:18:00 Test Item Value Reference Range Interpretation Comments MCV (test code = MCV) 86.3 80.0-94.0 [facility] HospitalAownjuwLYBGPJSRHB4759-14-23 15:18:00 Test Item Value Reference Range Interpretation Comments RBC (test code = RBC) 5.11 4.70-6.10 [facility] HospitalXusrtwlVCVHEEOTMA1266-03-08 15:18:00 Test Item Value Reference Range Interpretation Comments Hgb (test code = Hgb) 14.9 14.0-18.0 [facility] HospitalSbxzaogYJJXFRUVDK3853-75-39 15:18:00 Test Item Value Reference Range Interpretation Comments WBC (test code = WBC) 9.5 3.7-10.4 [facility]School[facility] WSPNTFX6967-52-94 15:18:00 Test Item Value Reference Range Interpretation Comments Antibody Scrn (test Negative (03/02/18 10:18 code = Antibody Scrn) AM) [facility] HospitalFliptuVlingo [facility] NLKUNFQ1990-15-46 15:18:00 Test Item Value Reference Range Interpretation Comments ABO/Rh (test code = ABO/Rh) O POS [facility]LbnqzmtYWCRELYEVFQD2157-39-93 15:18:00 Test Item Value Reference Range Interpretation Comments AGAP (test code = AGAP) 11.9 10.0-20.0 [facility]JvnsxufESKOHXQZEWAP1076-95-05 15:18:00 Test Item Value Reference Range Interpretation Comments eGFR (test code = eGFR) 77 [facility]ombWuiohrfCUPGSYAUFXVP2434-91-61 15:18:00 Test Item Value Reference Range Interpretation Comments Creatinine Lvl (test code = Creatinine 0.91 0.50-1.40 Lvl) [facility]KostvwbVDQMEIQQCDPO1979-20-74 15:18:00 Test Item Value Reference Range Interpretation Comments Chloride Lvl (test code = Chloride Lvl) 104 95-109 [facility]VzlbccxPDPUMMOTTIIO8670-88-82 15:18:00 Test Item Value Reference Range Interpretation Comments CO2 (test code = CO2) 26 24-32 [facility]ombDjibxoyFBIKLWEVSMRO6982-11-64 15:18:00 Test Item Value Reference Range Interpretation Comments Calcium Lvl (test code = Calcium Lvl) 9.6 8.5-10.5 [facility]ombAlktdwqTDRCFJNBBIRT7876-28-15 15:18:00 Test Item Value Reference Range Interpretation Comments Sodium Lvl (test code = Sodium Lvl) 138 135-145 [facility]TvvrrqmPXLDBMEZWMOZ0913-08-05 15:18:00 Test Item Value Reference Range Interpretation Comments Potassium Lvl (test code = Potassium 3.9 3.5-5.1 Lvl) [facility]KdrhdrcXEZGRMVIFJGB5040-32-88 15:18:00 Test Item Value Reference Range Interpretation Comments BUN (test code = BUN) 12 7-22 [facility]UunkxscGBOPZTNOLULK0271-51-54 15:18:00 Test Item Value Reference Range Interpretation Comments Glucose Lvl (test code = Glucose Lvl) 102 70-99 [facility] HospitalYwiadxjBXXRNJTMOJ4084-01-88 15:18:00 Test Item Value Reference Range Interpretation Comments Neutrophils # (test code = Neutrophils 7.3 1.5-8.1 #) [facility] HospitalKryweevUZLUCVTHBJ1339-12-38 15:18:00 Test Item Value Reference Range Interpretation Comments Lymphocytes # (test code = Lymphocytes 1.4 1.0-5.5 #) [facility] HospitalDywdarvHFWNPCCKCO5397-63-71 15:18:00 Test Item Value Reference Range Interpretation Comments Basophils (test code = 0.4 See_Comment [Aut omated message] The Basophils) system which ge nerated this result tra nsmitted reference range : <=1.0. The reference r taj was not used to int erpret this result as normal/abnormal . [facility] HospitalLquwovgUGXDLVBVAX5990-22-08 15:18:00 Test Item Value Reference Range Interpretation Comments Monocytes # (test code 0.8 See_Comment [Aut omated message] The = Monocytes #) system which generated this result tra nsmitted reference range : <=0.8. The reference r taj was not used to int erpret this result as normal/abnormal . [facility] HospitalUobwlrcRATBKORJOG1430-47-21 15:18:00 Test Item Value Reference Range Interpretation Comments Lymphocytes (test code = Lymphocytes) 14.2 20.0-40.0 [facility] HospitalPnbiouyLFKMCGPATR5238-30-18 15:18:00 Test Item Value Reference Range Interpretation Comments Monocytes (test code = Monocytes) 8.7 2.0-12.0 [facility] HospitalSmjqkhsGPHDYRRXVB7093-27-10 15:18:00 Test Item Value Reference Range Interpretation Comments Eosinophils (test code = 0.3 See_Comment [A utomated message] The Eosinophils) system which ge nerated this result tra nsmitted reference range : <=4.0. The reference r taj was not used to int erpret this result as normal/abnormal . [facility] HospitalTvxjiukMZHGQOXZNL8100-04-18 15:18:00 Test Item Value Reference Range Interpretation Comments Segs (test code = Segs) 76.4 45.0-75.0 [facility] HospitalMvdtkgyZZCWOQRFEZ7028-93-10 15:18:00 Test Item Value Reference Range Interpretation Comments PTT (test code = PTT) 33.7 s 22.9-35.8 [facility] HospitalOgxuhmzRQXEMGBQFR6486-88-90 15:18:00 Test Item Value Reference Range Interpretation Comments INR (test code = INR) 1.08 1 0.85-1.17 [facility] HospitalNmkslpbFUYNCVMDRG6976-35-44 15:18:00 Test Item Value Reference Range Interpretation Comments PT (test code = PT) 14.0 s 12.0-14.7 [facility] HospitalFpiumoePLGHNDHMUK3488-26-06 15:18:00 Test Item Value Reference Range Interpretation Comments MPV (test code = MPV) 9.5 7.4-10.4 [facility] HospitalOplnrajPKZIEKJINH2477-86-40 15:18:00 Test Item Value Reference Range Interpretation Comments MCHC (test code = MCHC) 33.8 32.0-36.0 [facility] HospitalLeplbyeLHPTSORNHU5774-34-80 15:18:00 Test Item Value Reference Range Interpretation Comments RDW (test code = RDW) 14.0 11.5-14.5 [facility] HospitalNkwdlotWTVTOESSMI7691-15-50 15:18:00 Test Item Value Reference Range Interpretation Comments MCH (test code = MCH) 29.1 pg 27.0-31.0 [facility] HospitalQwltxhiZXUDJIXZHL2020-69-66 15:18:00 Test Item Value Reference Range Interpretation Comments Platelet (test code = Platelet) 232 133-450 [facility] HospitalLgviorrBHYZDLZOXZ6040-76-31 15:18:00 Test Item Value Reference Range Interpretation Comments Hct (test code = Hct) 44.1 42.0-54.0 [facility] HospitalIzzbqjzFOVKTUMEMA1418-53-52 15:18:00 Test Item Value Reference Range Interpretation Comments MCV (test code = MCV) 86.3 80.0-94.0 [facility] HospitalQmxmpfmLXFLTORWWF0766-00-84 15:18:00 Test Item Value Reference Range Interpretation Comments RBC (test code = RBC) 5.11 4.70-6.10 [facility] HospitalSojhxvqOEFGUZDNCS8896-85-98 15:18:00 Test Item Value Reference Range Interpretation Comments Hgb (test code = Hgb) 14.9 14.0-18.0 [facility] HospitalKowtffaMLVTQHTIFU4754-84-68 15:18:00 Test Item Value Reference Range Interpretation Comments WBC (test code = WBC) 9.5 3.7-10.4 [facility] PRVDRYB7317-10-94 15:18:00 Test Item Value Reference Range Interpretation Comments Antibody Scrn (test Negative (03/02/18 10:18 code = Antibody Scrn) AM) [facility] KGVLFWZ6076-95-53 15:18:00 Test Item Value Reference Range Interpretation Comments ABO/Rh (test code = ABO/Rh) O POS [facility]EdwkzvtWUVBOOICDWNA2287-36-02 15:18:00 Test Item Value Reference Range Interpretation Comments AGAP (test code = AGAP) 11.9 10.0-20.0 [facility]NkwonbfPNOXRPITVVZL2095-29-40 15:18:00 Test Item Value Reference Range Interpretation Comments eGFR (test code = eGFR) 77 [facility]HjwletiFGHUXPLJSIJC2739-57-82 15:18:00 Test Item Value Reference Range Interpretation Comments Creatinine Lvl (test code = Creatinine 0.91 0.50-1.40 Lvl) [facility] ADJXUEJ2235-67-14 15:18:00 Test Item Value Reference Range Interpretation Comments Antibody Scrn (test Negative (03/02/18 10:18 code = Antibody Scrn) AM) [facility]TjytyquRSYNCMAYOUHQ1803-65-09 15:18:00 Test Item Value Reference Range Interpretation Comments Chloride Lvl (test code = Chloride Lvl) 104 95-109 [facility]TaejkckTMUJHGFTPZJO4634-34-68 15:18:00 Test Item Value Reference Range Interpretation Comments CO2 (test code = CO2) 26 24-32 [facility]ombZdjvsrrWXPVPJTKMCPQ9786-87-50 15:18:00 Test Item Value Reference Range Interpretation Comments Calcium Lvl (test code = Calcium Lvl) 9.6 8.5-10.5 [facility]ombZfdomhjGZCMWHZDHQQV6962-40-56 15:18:00 Test Item Value Reference Range Interpretation Comments Sodium Lvl (test code = Sodium Lvl) 138 135-145 [facility]GjzocbtQZSUGMGPVEAR8631-45-84 15:18:00 Test Item Value Reference Range Interpretation Comments Potassium Lvl (test code = Potassium 3.9 3.5-5.1 Lvl) [facility]XinsgjoPTCPIVGLTZFR5862-97-32 15:18:00 Test Item Value Reference Range Interpretation Comments BUN (test code = BUN) 12 7-22 [facility]ombZrelnweNEXYJBOJEGPB7787-43-27 15:18:00 Test Item Value Reference Range Interpretation Comments Glucose Lvl (test code = Glucose Lvl) 102 70-99 [facility] HospitalDrloqzlUQVWBVXEHC0280-78-29 15:18:00 Test Item Value Reference Range Interpretation Comments Neutrophils # (test code = Neutrophils 7.3 1.5-8.1 #) [facility] HospitalWjladruHTYETKTDDZ5491-32-91 15:18:00 Test Item Value Reference Range Interpretation Comments Lymphocytes # (test code = Lymphocytes 1.4 1.0-5.5 #) [facility] HospitalPtzjnbfOUOLVBNETC7773-09-28 15:18:00 Test Item Value Reference Range Interpretation Comments Basophils (test code = 0.4 See_Comment [Aut omated message] The Basophils) system which ge nerated this result tra nsmitted reference range : <=1.0. The reference r taj was not used to int erpret this result as normal/abnormal . [facility] YCOWGBH8350-48-08 15:18:00 Test Item Value Reference Range Interpretation Comments ABO/Rh (test code = ABO/Rh) O POS [facility] HospitalOowmjlnJBITEKDVRC3838-05-31 15:18:00 Test Item Value Reference Range Interpretation Comments Monocytes # (test code 0.8 See_Comment [Aut omated message] The = Monocytes #) system which generated this result tra nsmitted reference range : <=0.8. The reference r taj was not used to int erpret this result as normal/abnormal . [facility] HospitalTcvblljXHWJEGMRCC5422-64-48 15:18:00 Test Item Value Reference Range Interpretation Comments Lymphocytes (test code = Lymphocytes) 14.2 20.0-40.0 [facility]eq[facility]diXROKKWPNTK9333-46-[facility] 15:18:00 Test Item Value Reference Range Interpretation Comments Monocytes (test code = Monocytes) 8.7 2.0-12.0 [facility]XorobozVWFAANFRQQ8001-80-44 15:18:00 Test Item Value Reference Range Interpretation Comments Eosinophils (test code = 0.3 See_Comment [A utomated message] The Eosinophils) system which ge nerated this result tra nsmitted reference range : <=4.0. The reference r taj was not used to int erpret this result as normal/abnormal . [facility] HospitalPqmfanfQBYKXBPUAC3937-24-09 15:18:00 Test Item Value Reference Range Interpretation Comments Segs (test code = Segs) 76.4 45.0-75.0 [facility] HospitalHlfmbpsYAUXLNHODK3713-90-18 15:18:00 Test Item Value Reference Range Interpretation Comments PTT (test code = PTT) 33.7 s 22.9-35.8 [facility] HospitalHgxiszsOBZHUSVXBQ2983-55-31 15:18:00 Test Item Value Reference Range Interpretation Comments INR (test code = INR) 1.08 1 0.85-1.17 [facility]JxjzgceBHBHIPMPNU7641-69-66 15:18:00 Test Item Value Reference Range Interpretation Comments PT (test code = PT) 14.0 s 12.0-14.7 [facility] HospitalSqezbfuPNIRKIOKLD0215-35-69 15:18:00 Test Item Value Reference Range Interpretation Comments MPV (test code = MPV) 9.5 7.4-10.4 [facility]xbTCXWCBHCTG3733-[facility]-23 15:18:00 Test Item Value Reference Range Interpretation Comments MCHC (test code = MCHC) 33.8 32.0-36.0 [facility]FtgwkxhLBMAFTQDFCYW9050-24-81 15:18:00 Test Item Value Reference Range Interpretation Comments AGAP (test code = AGAP) 11.9 10.0-20.0 [facility]IuyqdrrEBGAXFXOQW0029-18-22 15:18:00 Test Item Value Reference Range Interpretation Comments RDW (test code = RDW) 14.0 11.5-14.5 [facility]EwxvrqfUCNBLUPWLX6385-04-24 15:18:00 Test Item Value Reference Range Interpretation Comments MCH (test code = MCH) 29.1 pg 27.0-31.0 [facility] HospitalIjfqymlWHFESIPWVN5243-43-77 15:18:00 Test Item Value Reference Range Interpretation Comments Platelet (test code = Platelet) 232 133-450 [facility] HospitalBerfrwiUEWTLMKNWQ6520-50-42 15:18:00 Test Item Value Reference Range Interpretation Comments Hct (test code = Hct) 44.1 42.0-54.0 [facility] HospitalQhrpgjjTLZWYSEPUJ5568-13-18 15:18:00 Test Item Value Reference Range Interpretation Comments MCV (test code = MCV) 86.3 80.0-94.0 [facility] HospitalBwsgkxnQKSGSCCGYE5994-12-74 15:18:00 Test Item Value Reference Range Interpretation Comments RBC (test code = RBC) 5.11 4.70-6.10 [facility] HospitalNpsiltoSFVYTRDJPP2827-88-26 15:18:00 Test Item Value Reference Range Interpretation Comments Hgb (test code = Hgb) 14.9 14.0-18.0 [facility] HospitalEmkkvnhITEQOFFFHY0511-78-13 15:18:00 Test Item Value Reference Range Interpretation Comments WBC (test code = WBC) 9.5 3.7-10.4 [facility]VcpcizmGJCULBOSUCVX1616-64-25 15:18:00 Test Item Value Reference Range Interpretation Comments eGFR (test code = eGFR) 77 [facility]WPY7661[facility]53 15:18:00 Test Item Value Reference Range Interpretation Comments Creatinine Lvl (test code = Creatinine 0.91 0.50-1.40 Lvl) [facility]nyvjjnTMVYQAIDFKFX4166-05-67 15:18:00 Test Item Value Reference Range Interpretation Comments Chloride Lvl (test code = Chloride Lvl) 104 95-[address] [facility] [employer] NDAHEQW3513-82-45 15:18:00 Test Item Value Reference Range Interpretation Comments Antibody Scrn (test Negative (03/02/18 10:18 code = Antibody Scrn) AM) [facility] [employer] YAKKLOL2654-32-30 15:18:00 Test Item Value Reference Range Interpretation Comments ABO/Rh (test code = ABO/Rh) O POS [facility]wayBqjfosxVJZTZMDHMJUD9435-70-07 15:18:00 Test Item Value Reference Range Interpretation Comments AGAP (test code = AGAP) 11.9 10.0-20.0 [facility]YmuwwaoKGDNVRWOVTDG6844-11-84 15:18:00 Test Item Value Reference Range Interpretation Comments eGFR (test code = eGFR) 77 [facility]ombWigkcoxSRPFEGZKJWCV9984-22-70 15:18:00 Test Item Value Reference Range Interpretation Comments Creatinine Lvl (test code = Creatinine 0.91 0.50-1.40 Lvl) [facility]ErsokzbYUSIVPHAGGWU7616-28-61 15:18:00 Test Item Value Reference Range Interpretation Comments Chloride Lvl (test code = Chloride Lvl) 104 95-109 [facility]HyjhetfFJXQZSGYNOYX0400-28-72 15:18:00 Test Item Value Reference Range Interpretation Comments CO2 (test code = CO2) - [facility]CeshswgOTHDFHGDXXRY2199-95-53 15:18:00 Test Item Value Reference Range Interpretation Comments Calcium Lvl (test code = Calcium Lvl) 9.6 8.5-10.5 [facility]AdhlyzkACBORQIRJWXD5942-50-12 15:18:00 Test Item Value Reference Range Interpretation Comments Sodium Lvl (test code = Sodium Lvl) 138 135-145 [facility]UotrvxyNKHAAIAXCZYJ1552-93-56 15:18:00 Test Item Value Reference Range Interpretation Comments Potassium Lvl (test code = Potassium 3.9 3.5-5.1 Lvl) [facility]ombZoobiftCANILVOVIIFY9364-24-76 15:18:00 Test Item Value Reference Range Interpretation Comments CO2 (test code = CO2) - [facility]ombFyqbuvyLDJPNHVSEDTM0416-61-46 15:18:00 Test Item Value Reference Range Interpretation Comments BUN (test code = BUN) 12 7-22 [facility]PdwpixyPITFVIRPKEHD2326-64-89 15:18:00 Test Item Value Reference Range Interpretation Comments Glucose Lvl (test code = Glucose Lvl) 102 70-99 [facility] HospitalUskdfpaSQTLKIGBCL8442-05-82 15:18:00 Test Item Value Reference Range Interpretation Comments Neutrophils # (test code = Neutrophils 7.3 1.5-8.1 #) [facility] HospitalYlczgfxTVJRLNFCQJ8267-77-19 15:18:00 Test Item Value Reference Range Interpretation Comments Lymphocytes # (test code = Lymphocytes 1.4 1.0-5.5 #) [facility] HospitalRklbbnnPJVRLXWSUU3931-69-26 15:18:00 Test Item Value Reference Range Interpretation Comments Basophils (test code = 0.4 See_Comment [Aut omated message] The Basophils) system which ge nerated this result tra nsmitted reference range : <=1.0. The reference r taj was not used to int erpret this result as normal/abnormal . [facility] HospitalDrtknsrQJMPFMTOBK4657-47-83 15:18:00 Test Item Value Reference Range Interpretation Comments Monocytes # (test code 0.8 See_Comment [Aut omated message] The = Monocytes #) system which generated this result tra nsmitted reference range : <=0.8. The reference r taj was not used to int erpret this result as normal/abnormal . [facility] HospitalRvobwnlYLOYGBXOLF0450-61-99 15:18:00 Test Item Value Reference Range Interpretation Comments Lymphocytes (test code = Lymphocytes) 14.2 20.0-40.0 [facility] HospitalSkhfmwfCXBKTVTTPT1115-04-31 15:18:00 Test Item Value Reference Range Interpretation Comments Monocytes (test code = Monocytes) 8.7 2.0-12.0 [facility] HospitalVfftduqNYMGGAOLFF0128-24-49 15:18:00 Test Item Value Reference Range Interpretation Comments Eosinophils (test code = 0.3 See_Comment [A utomated message] The Eosinophils) system which ge nerated this result tra nsmitted reference range : <=4.0. The reference r taj was not used to int erpret this result as normal/abnormal . [facility] HospitalKbipwmeDSQBJMUVHJ5150-16-88 15:18:00 Test Item Value Reference Range Interpretation Comments Segs (test code = Segs) 76.4 45.0-75.0 [facility] HospitalTtgbsznEZDHNWZCKDFQ8469-59-95 15:18:00 Test Item Value Reference Range Interpretation Comments Calcium Lvl (test code = Calcium Lvl) 9.6 8.5-10.5 [facility] HospitalJqsyvpqVFOIYOIWTV4915-70-67 15:18:00 Test Item Value Reference Range Interpretation Comments PTT (test code = PTT) 33.7 s 22.9-35.8 [facility] HospitalNxjfovfVNKCDCXDTL1111-36-12 15:18:00 Test Item Value Reference Range Interpretation Comments INR (test code = INR) 1.08 1 0.85-1.17 [facility] HospitalNbximzgKOXKSZXLFZ7749-18-93 15:18:00 Test Item Value Reference Range Interpretation Comments PT (test code = PT) 14.0 s 12.0-14.7 [facility] HospitalMlcejifFQSXGVQVHL8379-62-77 15:18:00 Test Item Value Reference Range Interpretation Comments MPV (test code = MPV) 9.5 7.4-10.4 [facility] HospitalJwlgwvvHAUVFESMZZ5696-81-45 15:18:00 Test Item Value Reference Range Interpretation Comments MCHC (test code = MCHC) 33.8 32.0-36.0 [facility] HospitalIkfoaxqRBEUWKASRA3315-56-49 15:18:00 Test Item Value Reference Range Interpretation Comments RDW (test code = RDW) 14.0 11.5-14.5 [facility] HospitalBxmhlbfLMWVFNNSMP2318-07-05 15:18:00 Test Item Value Reference Range Interpretation Comments MCH (test code = MCH) 29.1 pg 27.0-31.0 [facility] HospitalLyzcbwiKLNVXATAYF0309-29-93 15:18:00 Test Item Value Reference Range Interpretation Comments Platelet (test code = Platelet) 232 133-450 [facility] HospitalYmlcuwrLERXHCKGAI0752-82-75 15:18:00 Test Item Value Reference Range Interpretation Comments Hct (test code = Hct) 44.1 42.0-54.0 [facility] HospitalJqqamtoWDQMBPVPDL5679-25-28 15:18:00 Test Item Value Reference Range Interpretation Comments MCV (test code = MCV) 86.3 80.0-94.0 [facility]DoxaumyTKYIRHPPZOMY8419-11-78 15:18:00 Test Item Value Reference Range Interpretation Comments Sodium Lvl (test code = Sodium Lvl) 138 135-145 [facility] HospitalHayrrnkYGMMMIANQO3039-86-86 15:18:00 Test Item Value Reference Range Interpretation Comments RBC (test code = RBC) 5.11 4.70-6.10 [facility] HospitalZxvwvotYNCRMBKYKY4383-48-94 15:18:00 Test Item Value Reference Range Interpretation Comments Hgb (test code = Hgb) 14.9 14.0-18.0 [facility] HospitalFnrvmanMNLHXEVPXX3488-97-04 15:18:00 Test Item Value Reference Range Interpretation Comments WBC (test code = WBC) 9.5 3.7-10.4 [facility]QudqcbcMNUTILYMTZIK0311-04-68 15:18:00 Test Item Value Reference Range Interpretation Comments Potassium Lvl (test code = Potassium 3.9 3.5-5.1 Lvl) [facility]WnsujcbUUGPUPPKKECW5687-65-66 15:18:00 Test Item Value Reference Range Interpretation Comments BUN (test code = BUN) 12 - [facility] XTDZYLT1011-28-72 15:18:00 Test Item Value Reference Range Interpretation Comments Antibody Scrn (test Negative (03/02/18 10:18 code = Antibody Scrn) AM) [facility] NVGRFXF7481-10-54 15:18:00 Test Item Value Reference Range Interpretation Comments ABO/Rh (test code = ABO/Rh) O POS [facility]AipcozdEFBNMKKIOTRF8972-89-01 15:18:00 Test Item Value Reference Range Interpretation Comments AGAP (test code = AGAP) 11.9 10.0-20.0 [facility]ombFrqmzecVLSFAAVYJJMK6226-73-92 15:18:00 Test Item Value Reference Range Interpretation Comments eGFR (test code = eGFR) 77 [facility]YrjyhmkDHJEWWMWMIOM9417-99-86 15:18:00 Test Item Value Reference Range Interpretation Comments Creatinine Lvl (test code = Creatinine 0.91 0.50-1.40 Lvl) [facility]ItrqyfpKNVDSIYITTRV2628-19-75 15:18:00 Test Item Value Reference Range Interpretation Comments Glucose Lvl (test code = Glucose Lvl) 102 70-99 [facility]LrltwsuBAJQGOKXIHOD8218-11-76 15:18:00 Test Item Value Reference Range Interpretation Comments Chloride Lvl (test code = Chloride Lvl) 104 95-109 [facility]WkrvaelSAXMKDISLICU2700-45-95 15:18:00 Test Item Value Reference Range Interpretation Comments CO2 (test code = CO2) 26 24-32 [facility]ombAyizqkjLAFEXOKKMXJW9736-92-32 15:18:00 Test Item Value Reference Range Interpretation Comments Calcium Lvl (test code = Calcium Lvl) 9.6 8.5-10.5 [facility]DwzcatgFSQSCBGGKXXH5952-95-65 15:18:00 Test Item Value Reference Range Interpretation Comments Sodium Lvl (test code = Sodium Lvl) 138 135-145 [facility]SrkcctdUUSMOPSILYNZ7620-89-43 15:18:00 Test Item Value Reference Range Interpretation Comments Potassium Lvl (test code = Potassium 3.9 3.5-5.1 Lvl) [facility]EgrdwxqDOXYILYTGFJE4033-12-68 15:18:00 Test Item Value Reference Range Interpretation Comments BUN (test code = BUN) 06 04[facility]KlgpwmpGCRFGJFFCTKY6762-21-75 15:18:00 Test Item Value Reference Range Interpretation Comments Glucose Lvl (test code = Glucose Lvl) 102 70-99 [facility] HospitalMesfjdyEENQTCFKVP5252-22-24 15:18:00 Test Item Value Reference Range Interpretation Comments Neutrophils # (test code = Neutrophils 7.3 1.5-8.1 #) [facility] HospitalJesdworRDBCMEMIYB6297-57-96 15:18:00 Test Item Value Reference Range Interpretation Comments Lymphocytes # (test code = Lymphocytes 1.4 1.0-5.5 #) [facility] HospitalQfjkljjQETASTKIRM3468-70-84 15:18:00 Test Item Value Reference Range Interpretation Comments Basophils (test code = 0.4 See_Comment [Aut omated message] The Basophils) system which ge nerated this result tra nsmitted reference range : <=1.0. The reference r taj was not used to int erpret this result as normal/abnormal . [facility] HospitalVackrqvOCZFBYIUKQ1601-12-56 15:18:00 Test Item Value Reference Range Interpretation Comments Neutrophils # (test code = Neutrophils 7.3 1.5-8.1 #) [facility] HospitalKekemdkYUFESOVWPV8571-24-02 15:18:00 Test Item Value Reference Range Interpretation Comments Monocytes # (test code 0.8 See_Comment [Aut omated message] The = Monocytes #) system which generated this result tra nsmitted reference range : <=0.8. The reference r taj was not used to int erpret this result as normal/abnormal . [facility] HospitalZcdtyvwWLPRLLKISS5806-08-73 15:18:00 Test Item Value Reference Range Interpretation Comments Lymphocytes (test code = Lymphocytes) 14.2 20.0-40.0 [facility] HospitalEqilnnkRRXJDGZWRB9624-21-15 15:18:00 Test Item Value Reference Range Interpretation Comments Monocytes (test code = Monocytes) 8.7 2.0-12.0 [facility] HospitalAhyebusPSMBTWTAYS1075-74-16 15:18:00 Test Item Value Reference Range Interpretation Comments Eosinophils (test code = 0.3 See_Comment [A utomated message] The Eosinophils) system which ge nerated this result tra nsmitted reference range : <=4.0. The reference r taj was not used to int erpret this result as normal/abnormal . [facility] HospitalXsyrkzgOPGKRFIRDG8810-70-68 15:18:00 Test Item Value Reference Range Interpretation Comments Segs (test code = Segs) 76.4 45.0-75.0 [facility] HospitalKgppmvnCOCJOVQRCV7057-29-46 15:18:00 Test Item Value Reference Range Interpretation Comments PTT (test code = PTT) 33.7 s 22.9-35.8 [facility] HospitalZvrykbqXJECRGUBXJ7712-88-59 15:18:00 Test Item Value Reference Range Interpretation Comments INR (test code = INR) 1.08 1 0.85-1.17 [facility] HospitalMeidsjfTSVPJZRBYO3915-92-79 15:18:00 Test Item Value Reference Range Interpretation Comments PT (test code = PT) 14.0 s 12.0-14.7 [facility] HospitalMxnholmOAVWIIURNS4066-39-06 15:18:00 Test Item Value Reference Range Interpretation Comments MPV (test code = MPV) 9.5 7.4-10.4 [facility] HospitalOxkuxvsGUVTDQKZRE2337-57-23 15:18:00 Test Item Value Reference Range Interpretation Comments MCHC (test code = MCHC) 33.8 32.0-36.0 [facility] HospitalFnvxjhkXTDYQICOHC9044-62-14 15:18:00 Test Item Value Reference Range Interpretation Comments Lymphocytes # (test code = Lymphocytes 1.4 1.0-5.5 #) [facility] HospitalCeqqjccQCOEUSXOUG7992-97-68 15:18:00 Test Item Value Reference Range Interpretation Comments RDW (test code = RDW) 14.0 11.5-14.5 [facility] HospitalKykfyhfWWLTOXTKDL6085-68-45 15:18:00 Test Item Value Reference Range Interpretation Comments MCH (test code = MCH) 29.1 pg 27.0-31.0 [facility] HospitalDhiwmmzLVOUSVYAXS6148-09-98 15:18:00 Test Item Value Reference Range Interpretation Comments Platelet (test code = Platelet) 232 133-450 [facility] HospitalYtzjdpnGJFYWSMFHP1796-78-48 15:18:00 Test Item Value Reference Range Interpretation Comments Hct (test code = Hct) 44.1 42.0-54.0 [facility] HospitalQcansdcKIYJYYOZEN0613-18-19 15:18:00 Test Item Value Reference Range Interpretation Comments MCV (test code = MCV) 86.3 80.0-94.0 [facility] HospitalRnfnjkeNNNFISPVJU8223-67-21 15:18:00 Test Item Value Reference Range Interpretation Comments RBC (test code = RBC) 5.11 4.70-6.10 [facility] HospitalXbltcuyYZWUTEITUK7162-82-85 15:18:00 Test Item Value Reference Range Interpretation Comments Hgb (test code = Hgb) 14.9 14.0-18.0 [facility] HospitalBvixlhnEBXIFFAFEV0568-93-78 15:18:00 Test Item Value Reference Range Interpretation Comments WBC (test code = WBC) 9.5 3.7-10.4 [facility] HospitalEebjbqbKKMSRGQQNW8015-14-89 15:18:00 Test Item Value Reference Range Interpretation Comments Basophils (test code = 0.4 See_Comment [Aut omated message] The Basophils) system which ge nerated this result tra nsmitted reference range : <=1.0. The reference r taj was not used to int erpret this result as normal/abnormal . [facility] HospitalItkpfomETSNXWLKHW7140-40-24 15:18:00 Test Item Value Reference Range Interpretation Comments Monocytes # (test code 0.8 See_Comment [Aut omated message] The = Monocytes #) system which generated this result tra nsmitted reference range : <=0.8. The reference r taj was not used to int erpret this result as normal/abnormal . [facility] HospitalHejvjweBCASLGEMUL3365-22-36 15:18:00 Test Item Value Reference Range Interpretation Comments Lymphocytes (test code = Lymphocytes) 14.2 20.0-40.0 [facility]Peer[facility] UZSXKZA9456-50-21 15:18:00 Test Item Value Reference Range Interpretation Comments Antibody Scrn (test Negative (03/02/18 10:18 code = Antibody Scrn) AM) [facility]School[facility] UBRCZNF6719-47-93 15:18:00 Test Item Value Reference Range Interpretation Comments ABO/Rh (test code = ABO/Rh) O POS [facility]OoatkvdJIMJEDOJSVDB9690-27-24 15:18:00 Test Item Value Reference Range Interpretation Comments AGAP (test code = AGAP) 11.9 10.0-20.0 [facility]QoulwckPIYFWVYZOLEP9933-06-83 15:18:00 Test Item Value Reference Range Interpretation Comments eGFR (test code = eGFR) 77 [facility]ombDabkyhoVIPHMLWUKYHU0634-60-13 15:18:00 Test Item Value Reference Range Interpretation Comments Creatinine Lvl (test code = Creatinine 0.91 0.50-1.40 Lvl) [facility]XoriqksEDFQMITQKFVN2436-58-27 15:18:00 Test Item Value Reference Range Interpretation Comments Chloride Lvl (test code = Chloride Lvl) 104 95-109 [facility]LuihsenLUABJEZSHTPY0103-14-01 15:18:00 Test Item Value Reference Range Interpretation Comments CO2 (test code = CO2) 26 24-32 [facility]ombFdablelYBBADJWWTVAF3811-69-02 15:18:00 Test Item Value Reference Range Interpretation Comments Calcium Lvl (test code = Calcium Lvl) 9.6 8.5-10.5 [facility]ZodlldjCWQUEZIUAZYS2719-94-02 15:18:00 Test Item Value Reference Range Interpretation Comments Sodium Lvl (test code = Sodium Lvl) 138 135-145 [facility]HlzywajMHDUSWRRRWHT7039-12-59 15:18:00 Test Item Value Reference Range Interpretation Comments Potassium Lvl (test code = Potassium 3.9 3.5-5.1 Lvl) [facility] HospitalQwcnpbbUYDEQANKPH9135-64-15 15:18:00 Test Item Value Reference Range Interpretation Comments Monocytes (test code = Monocytes) 8.7 2.0-12.0 [facility]EmkqqnqXNCDVYWZSGNP0925-19-76 15:18:00 Test Item Value Reference Range Interpretation Comments BUN (test code = BUN) 12 7-22 [facility]MmpkoqeRCXKNOPCFPUW0121-70-38 15:18:00 Test Item Value Reference Range Interpretation Comments Glucose Lvl (test code = Glucose Lvl) 102 70-99 [facility] HospitalKrflkwwZJDMTUVBOU3696-09-12 15:18:00 Test Item Value Reference Range Interpretation Comments Neutrophils # (test code = Neutrophils 7.3 1.5-8.1 #) [facility] HospitalYzszqgsJXMEJEGOSU0859-38-67 15:18:00 Test Item Value Reference Range Interpretation Comments Lymphocytes # (test code = Lymphocytes 1.4 1.0-5.5 #) [facility] HospitalTlqpthyNGONCFDHIM9032-57-41 15:18:00 Test Item Value Reference Range Interpretation Comments Basophils (test code = 0.4 See_Comment [Aut omated message] The Basophils) system which ge nerated this result tra nsmitted reference range : <=1.0. The reference r taj was not used to int erpret this result as normal/abnormal . [facility] HospitalBhqanizQKISALGXJL7697-87-73 15:18:00 Test Item Value Reference Range Interpretation Comments Monocytes # (test code 0.8 See_Comment [Aut omated message] The = Monocytes #) system which generated this result tra nsmitted reference range : <=0.8. The reference r taj was not used to int erpret this result as normal/abnormal . [facility] HospitalCwqebwtHKVXOXPVOT9627-05-06 15:18:00 Test Item Value Reference Range Interpretation Comments Lymphocytes (test code = Lymphocytes) 14.2 20.0-40.0 [facility] HospitalEptsiuqSXOYJSUAFR2032-31-38 15:18:00 Test Item Value Reference Range Interpretation Comments Monocytes (test code = Monocytes) 8.7 2.0-12.0 [facility] HospitalKsyssenIOYWJVPLPG7722-10-97 15:18:00 Test Item Value Reference Range Interpretation Comments Eosinophils (test code = 0.3 See_Comment [A utomated message] The Eosinophils) system which ge nerated this result tra nsmitted reference range : <=4.0. The reference r taj was not used to int erpret this result as normal/abnormal . [facility] HospitalPqnspwdGQXSHSPAYR9203-36-36 15:18:00 Test Item Value Reference Range Interpretation Comments Segs (test code = Segs) 76.4 45.0-75.0 [facility] HospitalRtddrbkVULGEBFWPV9707-19-90 15:18:00 Test Item Value Reference Range Interpretation Comments Eosinophils (test code = 0.3 See_Comment [A utomated message] The Eosinophils) system which ge nerated this result tra nsmitted reference range : <=4.0. The reference r taj was not used to int erpret this result as normal/abnormal . [facility] HospitalPxbcitaTOIPXVRTNC2252-40-79 15:18:00 Test Item Value Reference Range Interpretation Comments PTT (test code = PTT) 33.7 s 22.9-35.8 [facility] HospitalYfszbwgRGKMLQQPEE3810-76-36 15:18:00 Test Item Value Reference Range Interpretation Comments INR (test code = INR) 1.08 1 0.85-1.17 [facility] HospitalTcbpttiVMYTCLIJFG7477-46-68 15:18:00 Test Item Value Reference Range Interpretation Comments PT (test code = PT) 14.0 s 12.0-14.7 [facility] HospitalIcoqrleMFCNHDBNYV6621-44-29 15:18:00 Test Item Value Reference Range Interpretation Comments MPV (test code = MPV) 9.5 7.4-10.4 [facility] HospitalKpylfaxSTSAFSFFEA6126-83-93 15:18:00 Test Item Value Reference Range Interpretation Comments MCHC (test code = MCHC) 33.8 32.0-36.0 [facility] HospitalEdilqcpQYWOQSVHRI4788-04-44 15:18:00 Test Item Value Reference Range Interpretation Comments RDW (test code = RDW) 14.0 11.5-14.5 [facility] HospitalAjozwopALTWBEQOWS8387-42-43 15:18:00 Test Item Value Reference Range Interpretation Comments MCH (test code = MCH) 29.1 pg 27.0-31.0 [facility] HospitalTxkwpwnIANEXSPGVH8778-43-32 15:18:00 Test Item Value Reference Range Interpretation Comments Platelet (test code = Platelet) 232 133-450 [facility] HospitalZwzmbcuHFNNIVBVMW7948-10-81 15:18:00 Test Item Value Reference Range Interpretation Comments Hct (test code = Hct) 44.1 42.0-54.0 [facility] HospitalEqjusjsQJAVDUQQEW2511-45-89 15:18:00 Test Item Value Reference Range Interpretation Comments MCV (test code = MCV) 86.3 80.0-94.0 [facility] HospitalLyjiwjcFQZFENMEBK7932-26-10 15:18:00 Test Item Value Reference Range Interpretation Comments Segs (test code = Segs) 76.4 45.0-75.0 [facility] HospitalGuqnromLMPASFCIIQ4231-91-19 15:18:00 Test Item Value Reference Range Interpretation Comments RBC (test code = RBC) 5.11 4.70-6.10 [facility] HospitalKpoocgsZUNBZJFPYS8606-01-80 15:18:00 Test Item Value Reference Range Interpretation Comments Hgb (test code = Hgb) 14.9 14.0-18.0 [facility] HospitalIfdollyGGPNCIARFG8891-20-98 15:18:00 Test Item Value Reference Range Interpretation Comments WBC (test code = WBC) 9.5 3.7-10.4 [facility] HospitalJndcvibDHUUNOTCYR4609-36-84 15:18:00 Test Item Value Reference Range Interpretation Comments PTT (test code = PTT) 33.7 s 22.9-35.8 [facility] HospitalPaaeigpDWHQSKDWEG9377-40-95 15:18:00 Test Item Value Reference Range Interpretation Comments INR (test code = INR) 1.08 1 0.85-1.17 [facility] CKPFHHM6176-22-66 15:18:00 Test Item Value Reference Range Interpretation Comments Antibody Scrn (test Negative (03/02/18 10:18 code = Antibody Scrn) AM) [facility] QYWLNDQ9197-46-20 15:18:00 Test Item Value Reference Range Interpretation Comments ABO/Rh (test code = ABO/Rh) O [facility] 15:18:00 Test Item Value Reference Range Interpretation Comments AGAP (test code = AGAP) 11.9 10.0-20.0 [facility]FfmdjguFSKXVHMGERPE7577-21-63 15:18:00 Test Item Value Reference Range Interpretation Comments eGFR (test code = eGFR) 77 [facility] 15:18:00 Test Item Value Reference Range Interpretation Comments PT (test code = PT) 14.0 s 12.0-14.7 [facility]VltjoxxXVEFPSICPYEY3669-51-66 15:18:00 Test Item Value Reference Range Interpretation Comments Creatinine Lvl (test code = Creatinine 0.91 0.50-1.40 Lvl) [facility]GpirxnmQFOGZXATIHYB2668-20-76 15:18:00 Test Item Value Reference Range Interpretation Comments Chloride Lvl (test code = Chloride Lvl) 104 95-109 [facility]KdaxxqeKDWJOUUSPECI0881-64-62 15:18:00 Test Item Value Reference Range Interpretation Comments CO2 (test code = CO2) 26 24-32 [facility]YjwwailJIMVNQEZNWVG7979-40-74 15:18:00 Test Item Value Reference Range Interpretation Comments Calcium Lvl (test code = Calcium Lvl) 9.6 8.5-10.5 [facility]TqvecttSJGXDJSMHHKT5313-10-35 15:18:00 Test Item Value Reference Range Interpretation Comments Sodium Lvl (test code = Sodium Lvl) 138 135-145 [facility]PjukstdGGDDFGTQFUDD7296-54-73 15:18:00 Test Item Value Reference Range Interpretation Comments Potassium Lvl (test code = Potassium 3.9 3.5-5.1 Lvl) [facility]IvjimqaCNJLCPCJYWTR8281-66-31 15:18:00 Test Item Value Reference Range Interpretation Comments BUN (test code = BUN) 12 7-22 [facility]XnfqkkbHSPDMFOIQJMP1263-60-37 15:18:00 Test Item Value Reference Range Interpretation Comments Glucose Lvl (test code = Glucose Lvl) 102 70-99 [facility]IlheogiTRPQTSLYSE1931-04-30 15:18:00 Test Item Value Reference Range Interpretation Comments Neutrophils # (test code = Neutrophils 7.3 1.5-8.1 #) [facility] HospitalJdwvdfyJFSTBLZQPH0583-27-89 15:18:00 Test Item Value Reference Range Interpretation Comments Lymphocytes # (test code = Lymphocytes 1.4 1.0-5.5 #) [facility] HospitalAyfwdvrBAIVHNFZUD0750-24-84 15:18:00 Test Item Value Reference Range Interpretation Comments MPV (test code = MPV) 9.5 7.4-10.4 [facility] HospitalGkyvekhQHBGFCJHHF7414-76-22 15:18:00 Test Item Value Reference Range Interpretation Comments Basophils (test code = 0.4 See_Comment [Aut omated message] The Basophils) system which ge nerated this result tra nsmitted reference range : <=1.0. The reference r taj was not used to int erpret this result as normal/abnormal . [facility] HospitalHzrzebwMQCVTCCARU6728-55-36 15:18:00 Test Item Value Reference Range Interpretation Comments Monocytes # (test code 0.8 See_Comment [Aut omated message] The = Monocytes #) system which generated this result tra nsmitted reference range : <=0.8. The reference r taj was not used to int erpret this result as normal/abnormal . [facility] HospitalBwhgyvwVVLCGOLZPD8822-00-76 15:18:00 Test Item Value Reference Range Interpretation Comments Lymphocytes (test code = Lymphocytes) 14.2 20.0-40.0 [facility] HospitalWtqdzvhQJFMPZXXHK3378-17-02 15:18:00 Test Item Value Reference Range Interpretation Comments Monocytes (test code = Monocytes) 8.7 2.0-12.0 [facility] HospitalNefntnyTFZGFBXBGK8047-90-30 15:18:00 Test Item Value Reference Range Interpretation Comments Eosinophils (test code = 0.3 See_Comment [A utomated message] The Eosinophils) system which ge nerated this result tra nsmitted reference range : <=4.0. The reference r taj was not used to int erpret this result as normal/abnormal . [facility] HospitalJkszfgzMTPEULWLTY9924-11-32 15:18:00 Test Item Value Reference Range Interpretation Comments Segs (test code = Segs) 76.4 45.0-75.0 [facility] HospitalLogqmjpLUBVIMYOGN4794-99-77 15:18:00 Test Item Value Reference Range Interpretation Comments PTT (test code = PTT) 33.7 s 22.9-35.8 [facility] HospitalNojlopcORUVHDFZTH2414-09-05 15:18:00 Test Item Value Reference Range Interpretation Comments INR (test code = INR) 1.08 1 0.85-1.17 [facility] HospitalMrroeaiPXZHSWTWBB7264-01-02 15:18:00 Test Item Value Reference Range Interpretation Comments PT (test code = PT) 14.0 s 12.0-14.7 [facility] HospitalVashpkkVNTHSHNCDD8761-35-92 15:18:00 Test Item Value Reference Range Interpretation Comments MPV (test code = MPV) 9.5 7.4-10.4 [facility] HospitalSdgnuqxZWJLIOLOID1489-90-09 15:18:00 Test Item Value Reference Range Interpretation Comments MCHC (test code = MCHC) 33.8 32.0-36.0 [facility] HospitalVjzofotDEKUVRMOJM8840-31-24 15:18:00 Test Item Value Reference Range Interpretation Comments MCHC (test code = MCHC) 33.8 32.0-36.0 [facility] HospitalEjopmltVSNSRVSUOD4461-50-40 15:18:00 Test Item Value Reference Range Interpretation Comments RDW (test code = RDW) 14.0 11.5-14.5 [facility] HospitalQubsqvsGKSXGJIBRC5864-81-04 15:18:00 Test Item Value Reference Range Interpretation Comments MCH (test code = MCH) 29.1 pg 27.0-31.0 [facility] HospitalAelelhrZQAHOFQXQD3851-02-71 15:18:00 Test Item Value Reference Range Interpretation Comments Platelet (test code = Platelet) 232 133-450 [facility] HospitalDxerhpmAWXJCQBMFM8442-32-76 15:18:00 Test Item Value Reference Range Interpretation Comments Hct (test code = Hct) 44.1 42.0-54.0 [facility] HospitalJsfdahlISZAJKCNOA9696-74-32 15:18:00 Test Item Value Reference Range Interpretation Comments MCV (test code = MCV) 86.3 80.0-94.0 [facility] HospitalOvuuojnGLALITZVHG0361-38-43 15:18:00 Test Item Value Reference Range Interpretation Comments RBC (test code = RBC) 5.11 4.70-6.10 [facility] HospitalSkcggmdAFUPYQCNCK4954-16-91 15:18:00 Test Item Value Reference Range Interpretation Comments Hgb (test code = Hgb) 14.9 14.0-18.0 [facility] HospitalOrrmdnuEBYNMKSCZF9675-48-96 15:18:00 Test Item Value Reference Range Interpretation Comments WBC (test code = WBC) 9.5 3.7-10.4 [facility] HospitalWynismiHNNYCCEDSG2417-00-82 15:18:00 Test Item Value Reference Range Interpretation Comments RDW (test code = RDW) 14.0 11.5-14.5 [facility] HospitalYwywbgiGRRANXJMJL7687-84-88 15:18:00 Test Item Value Reference Range Interpretation Comments MCH (test code = MCH) 29.1 pg 27.0-31.0 [facility] HospitalWhtsszcNYNDJULNZX1856-98-83 15:18:00 Test Item Value Reference Range Interpretation Comments Platelet (test code = Platelet) 232 133-[address] [facility] gridComm KDNTIDA9153-96-44 15:18:00 Test Item Value Reference Range Interpretation Comments Antibody Scrn (test Negative (03/02/18 10:18 code = Antibody Scrn) AM) [facility] [employer] CAQQDWM8069-65-25 15:18:00 Test Item Value Reference Range Interpretation Comments ABO/Rh (test code = ABO/Rh) O POS [facility]UkldzwoVSEAZLVEBRTL9387-58-32 15:18:00 Test Item Value Reference Range Interpretation Comments AGAP (test code = AGAP) 11.9 10.0-20.0 [facility]KmygnkgMTBOIUXNQCSX3361-63-00 15:18:00 Test Item Value Reference Range Interpretation Comments eGFR (test code = eGFR) 77 [facility]HppkxxlFPGETDOVOLKG6467-20-76 15:18:00 Test Item Value Reference Range Interpretation Comments Creatinine Lvl (test code = Creatinine 0.91 0.50-1.40 Lvl) [facility]RhtxxreCVABXEKBSYEM1631-24-93 15:18:00 Test Item Value Reference Range Interpretation Comments Chloride Lvl (test code = Chloride Lvl) 104 95-109 [facility]KewerrtDCIZAGZAFZVP4192-18-50 15:18:00 Test Item Value Reference Range Interpretation Comments CO2 (test code = CO2) 26 24-32 [facility] HospitalKhaanepDCZBFHUXUT7132-37-84 15:18:00 Test Item Value Reference Range Interpretation Comments Hct (test code = Hct) 44.1 42.0-54.0 [facility]FxfkebeFKOITBVQAOEU0955-39-21 15:18:00 Test Item Value Reference Range Interpretation Comments Calcium Lvl (test code = Calcium Lvl) 9.6 8.5-10.5 [facility]VohwhukPWHLKVAAKTWB9091-14-25 15:18:00 Test Item Value Reference Range Interpretation Comments Sodium Lvl (test code = Sodium Lvl) 138 135-145 [facility]XxmkrxrAIIZZCKZKGTM7869-36-91 15:18:00 Test Item Value Reference Range Interpretation Comments Potassium Lvl (test code = Potassium 3.9 3.5-5.1 Lvl) [facility]ChxadhcXWHRLLQIXHHF4943-01-44 15:18:00 Test Item Value Reference Range Interpretation Comments BUN (test code = BUN) 12 7-22 [facility]PktalvsLMQOMGLFFJUH6300-04-65 15:18:00 Test Item Value Reference Range Interpretation Comments Glucose Lvl (test code = Glucose Lvl) 102 70-99 [facility] HospitalWtilxwdMBEIXVXCFQ4824-45-13 15:18:00 Test Item Value Reference Range Interpretation Comments Neutrophils # (test code = Neutrophils 7.3 1.5-8.1 #) [facility] HospitalWiulhsrCNJQXSCFOD6246-22-47 15:18:00 Test Item Value Reference Range Interpretation Comments Lymphocytes # (test code = Lymphocytes 1.4 1.0-5.5 #) [facility] HospitalEoipgogGKYFZGKQUR9272-95-42 15:18:00 Test Item Value Reference Range Interpretation Comments Basophils (test code = 0.4 See_Comment [Aut omated message] The Basophils) system which ge nerated this result tra nsmitted reference range : <=1.0. The reference r taj was not used to int erpret this result as normal/abnormal . [facility] HospitalLhwdwblEZLUYFVUFH0361-21-99 15:18:00 Test Item Value Reference Range Interpretation Comments Monocytes # (test code 0.8 See_Comment [Aut omated message] The = Monocytes #) system which generated this result tra nsmitted reference range : <=0.8. The reference r taj was not used to int erpret this result as normal/abnormal . [facility] HospitalHqotndzCSQLEAFRDI4935-60-10 15:18:00 Test Item Value Reference Range Interpretation Comments Lymphocytes (test code = Lymphocytes) 14.2 20.0-40.0 [facility] HospitalMudjjvuPGPOQBQMEH8919-53-50 15:18:00 Test Item Value Reference Range Interpretation Comments MCV (test code = MCV) 86.3 80.0-94.0 [facility] HospitalRkftpuyQAGRFJDMRI8481-34-84 15:18:00 Test Item Value Reference Range Interpretation Comments Monocytes (test code = Monocytes) 8.7 2.0-12.0 [facility] HospitalRkagmmhWIPPWAVENY5384-07-03 15:18:00 Test Item Value Reference Range Interpretation Comments Eosinophils (test code = 0.3 See_Comment [A utomated message] The Eosinophils) system which ge nerated this result tra nsmitted reference range : <=4.0. The reference r taj was not used to int erpret this result as normal/abnormal . [facility] HospitalOfiudutEWMESEQCOB5185-57-18 15:18:00 Test Item Value Reference Range Interpretation Comments Segs (test code = Segs) 76.4 45.0-75.0 [facility] HospitalVhitfiqXYGADEWNDB1063-49-59 15:18:00 Test Item Value Reference Range Interpretation Comments PTT (test code = PTT) 33.7 s 22.9-35.8 [facility] HospitalVmsiapvDIRIUQOIES3019-78-17 15:18:00 Test Item Value Reference Range Interpretation Comments INR (test code = INR) 1.08 1 0.85-1.17 [facility] HospitalEsghhkaWQQOUZZDHE2028-22-14 15:18:00 Test Item Value Reference Range Interpretation Comments PT (test code = PT) 14.0 s 12.0-14.7 [facility] HospitalAsxbdbuEXSBRWANBK2314-64-89 15:18:00 Test Item Value Reference Range Interpretation Comments MPV (test code = MPV) 9.5 7.4-10.4 [facility] HospitalShjnmufPQZZNXRUDJ5804-73-94 15:18:00 Test Item Value Reference Range Interpretation Comments MCHC (test code = MCHC) 33.8 32.0-36.0 [facility] HospitalVsimzktQAFELILNPC8506-85-76 15:18:00 Test Item Value Reference Range Interpretation Comments RDW (test code = RDW) 14.0 11.5-14.5 [facility] HospitalVfxgrehQQUGDJVNZZ6843-45-19 15:18:00 Test Item Value Reference Range Interpretation Comments MCH (test code = MCH) 29.1 pg 27.0-31.0 [facility] HospitalCupkoemOKFKTZYKAX7715-28-42 15:18:00 Test Item Value Reference Range Interpretation Comments RBC (test code = RBC) 5.11 4.70-6.10 [facility] HospitalHmnoyjuIHYFDJWOYU3563-22-88 15:18:00 Test Item Value Reference Range Interpretation Comments Platelet (test code = Platelet) 232 133-450 [facility] HospitalQrlxvzsKPXLOINZYD4097-74-12 15:18:00 Test Item Value Reference Range Interpretation Comments Hct (test code = Hct) 44.1 42.0-54.0 [facility] HospitalCtfxaliLPFDIOCSEM8378-79-65 15:18:00 Test Item Value Reference Range Interpretation Comments MCV (test code = MCV) 86.3 80.0-94.0 [facility] HospitalDygugviEVCLSIFROL9373-92-66 15:18:00 Test Item Value Reference Range Interpretation Comments RBC (test code = RBC) 5.11 4.70-6.10 [facility] HospitalCgjbaasWWMHEUQPGY5670-07-46 15:18:00 Test Item Value Reference Range Interpretation Comments Hgb (test code = Hgb) 14.9 14.0-18.0 [facility] HospitalEbgepceHRNVKGQMIG5789-74-11 15:18:00 Test Item Value Reference Range Interpretation Comments WBC (test code = WBC) 9.5 3.7-10.4 [facility] HospitalUooxegeIVMSVTYQIM1584-28-13 15:18:00 Test Item Value Reference Range Interpretation Comments Hgb (test code = Hgb) 14.9 14.0-18.0 [facility] HospitalTpflxntQLZORWMENB7346-96-38 15:18:00 Test Item Value Reference Range Interpretation Comments WBC (test code = WBC) 9.5 3.7-10.[address] [facility] [employer] NOLHLPP9639-40-33 15:18:00 Test Item Value Reference Range Interpretation Comments Antibody Scrn (test Negative (03/02/18 10:18 code = Antibody Scrn) AM) [facility] [employer] SWYXDBU2973-54-20 15:18:00 Test Item Value Reference Range Interpretation Comments ABO/Rh (test code = ABO/Rh) O POS [facility]PurmlktLVWYPTZXVUMC4579-91-92 15:18:00 Test Item Value Reference Range Interpretation Comments AGAP (test code = AGAP) 11.9 10.0-20.0 [facility]JgocaqgMQLCCCSGBBVX4613-40-08 15:18:00 Test Item Value Reference Range Interpretation Comments eGFR (test code = eGFR) 77 [facility]XsoaapcURJXEYHQXQUE9792-64-46 15:18:00 Test Item Value Reference Range Interpretation Comments Creatinine Lvl (test code = Creatinine 0.91 0.50-1.40 Lvl) [facility]DmckgqdFTNOUCFNNKGA4493-04-22 15:18:00 Test Item Value Reference Range Interpretation Comments Chloride Lvl (test code = Chloride Lvl) 104 95-109 [facility]CqfqkjdNWDTZJFBBWCB2007-47-51 15:18:00 Test Item Value Reference Range Interpretation Comments CO2 (test code = CO2) 26 24-32 [facility]GxenshwRGLOODVLKZSJ8088-06-08 15:18:00 Test Item Value Reference Range Interpretation Comments Calcium Lvl (test code = Calcium Lvl) 9.6 8.5-10.5 [facility]SxfxoscTEYBHZWCCYHO1802-49-71 15:18:00 Test Item Value Reference Range Interpretation Comments Sodium Lvl (test code = Sodium Lvl) 138 135-145 [facility]IjnuekjHTQZGOWRYIUJ0995-28-01 15:18:00 Test Item Value Reference Range Interpretation Comments Potassium Lvl (test code = Potassium 3.9 3.5-5.1 Lvl) [facility]TveymqkRXNZORPTFNSJ5428-64-92 15:18:00 Test Item Value Reference Range Interpretation Comments BUN (test code = BUN) 12 7-22 [facility]MrvwshkQDZAHGMVQWCG1029-84-54 15:18:00 Test Item Value Reference Range Interpretation Comments Glucose Lvl (test code = Glucose Lvl) 102 70-99 [facility] HospitalMepxcdrGEOLLAKRYS2932-51-55 15:18:00 Test Item Value Reference Range Interpretation Comments Neutrophils # (test code = Neutrophils 7.3 1.5-8.1 #) [facility] HospitalDuyvvwxAGJVTKILCL6519-23-93 15:18:00 Test Item Value Reference Range Interpretation Comments Lymphocytes # (test code = Lymphocytes 1.4 1.0-5.5 #) [facility] HospitalDqnwtdeFKMDAVIPRD2039-58-12 15:18:00 Test Item Value Reference Range Interpretation Comments Basophils (test code = 0.4 See_Comment [Aut omated message] The Basophils) system which ge nerated this result tra nsmitted reference range : <=1.0. The reference r taj was not used to int erpret this result as normal/abnormal . [facility] HospitalOjuszujYNPOXBTAOZ3308-19-93 15:18:00 Test Item Value Reference Range Interpretation Comments Monocytes # (test code 0.8 See_Comment [Aut omated message] The = Monocytes #) system which generated this result tra nsmitted reference range : <=0.8. The reference r taj was not used to int erpret this result as normal/abnormal . [facility] HospitalSplayfkXMWQHCPRCI3824-55-90 15:18:00 Test Item Value Reference Range Interpretation Comments Lymphocytes (test code = Lymphocytes) 14.2 20.0-40.0 [facility] HospitalByymhfdCXQRVUTVDR6090-83-75 15:18:00 Test Item Value Reference Range Interpretation Comments Monocytes (test code = Monocytes) 8.7 2.0-12.0 [facility] HospitalAiuhukxMEUICBEJJH7704-03-25 15:18:00 Test Item Value Reference Range Interpretation Comments Eosinophils (test code = 0.3 See_Comment [A utomated message] The Eosinophils) system which ge nerated this result tra nsmitted reference range : <=4.0. The reference r taj was not used to int erpret this result as normal/abnormal . [facility] HospitalOzdokwnQIADSSAADQ3072-70-34 15:18:00 Test Item Value Reference Range Interpretation Comments Segs (test code = Segs) 76.4 45.0-75.0 [facility] HospitalNjzuehjTTUXNRZRYW4679-72-45 15:18:00 Test Item Value Reference Range Interpretation Comments PTT (test code = PTT) 33.7 s 22.9-35.8 [facility] HospitalYutlaknUAOHMAOGUI4032-61-20 15:18:00 Test Item Value Reference Range Interpretation Comments INR (test code = INR) 1.08 1 0.85-1.17 [facility] HospitalNcgklviRNABQRMFUN2403-59-42 15:18:00 Test Item Value Reference Range Interpretation Comments PT (test code = PT) 14.0 s 12.0-14.7 [facility] HospitalPteelcnEJLBDSOJFG4200-01-33 15:18:00 Test Item Value Reference Range Interpretation Comments MPV (test code = MPV) 9.5 7.4-10.4 [facility] HospitalEayxrbvDYDTPOOJAI0403-93-89 15:18:00 Test Item Value Reference Range Interpretation Comments MCHC (test code = MCHC) 33.8 32.0-36.0 [facility] HospitalVwveymlLGAYUQQYGK6837-61-50 15:18:00 Test Item Value Reference Range Interpretation Comments RDW (test code = RDW) 14.0 11.5-14.5 [facility] HospitalHzvvryoUDWDVNGYCI1407-80-60 15:18:00 Test Item Value Reference Range Interpretation Comments MCH (test code = MCH) 29.1 pg 27.0-31.0 [facility] HospitalKhtffafSWQSDLPNEW5284-60-56 15:18:00 Test Item Value Reference Range Interpretation Comments Platelet (test code = Platelet) 232 133-450 [facility] HospitalKllzzeaVQRGSHLQCU1640-06-55 15:18:00 Test Item Value Reference Range Interpretation Comments Hct (test code = Hct) 44.1 42.0-54.0 [facility] HospitalQdyiatbOWHLFNGOQE7149-87-16 15:18:00 Test Item Value Reference Range Interpretation Comments MCV (test code = MCV) 86.3 80.0-94.0 [facility] HospitalQomncpeEXCFBZDZGA8456-56-25 15:18:00 Test Item Value Reference Range Interpretation Comments RBC (test code = RBC) 5.11 4.70-6.10 [facility] HospitalNvohnqwYTCZWTWLHY8340-04-50 15:18:00 Test Item Value Reference Range Interpretation Comments Hgb (test code = Hgb) 14.9 14.0-18.0 [facility] HospitalKyxnklkKOLTRZTESA3317-47-89 15:18:00 Test Item Value Reference Range Interpretation Comments WBC (test code = WBC) 9.5 3.7-10.4 [facility] Notes Date/Time Note Provider Source 2018-03-02 10:45:00-00:00 EXAM: XR RIGHT WRIST 3 VIEWS [facility] DATE: 03/02/2018 10:45 AM CDT INDICATION: - R index finger fx COMPARISON: None TECHNIQUE: PA, lateral and oblique radiographs o f the wrist FINDINGS: No acute fracture or malalignment is identified. No soft tissue abnormality is identified. IMPRESSION: No fractures identified. 2018-03-02 10:45:00-00:00 EXAM: XR RIGHT WRIST 3 VIEWS [facility] DATE: 03/02/2018 10:45 AM CDT INDICATION: - R index finger fx COMPARISON: None TECHNIQUE: PA, lateral and oblique radiographs o f the wrist FINDINGS: No acute fracture or malalignment is identified. No soft tissue abnormality is identified. IMPRESSION: No fractures identified. 2018-03-02 10:45:00-00:00 EXAM: XR RIGHT WRIST 3 VIEWS [facility] DATE: 03/02/2018 10:45 AM CDT INDICATION: - R index finger fx COMPARISON: None TECHNIQUE: PA, lateral and oblique radiographs o f the wrist FINDINGS: No acute fracture or malalignment is identified. No soft tissue abnormality is identified. IMPRESSION: No fractures identified. 2018-03-02 10:09:00-00:00 EXAM: XR RIGHT HAND 3 VIEWS [facility] DATE: 03/02/2018 10:09 AM CDT INDICATION: - laceration to right index finger, middle finger, fx? COMPARISON: None. TECHNIQUE: PA, lateral and oblique radiographs o f the hand FINDINGS: Digits overlap on the lateral view limiting visu alization. Comminuted, minimally displa addy fractures from the dorsal cortex of the right index finger distal head of the middle phalanx and dorsal base of the distal phalanx. Flexion deformity of the index finger DIP. 1.5 mm rounded metallic fore ign body projects in the volar aspect of the index finger DIP joint, with rounded, less dense foreign bodies projecting at the volar soft tissues of the PIP joint. Small laceration at the dist al tip of the right index finger with tiny hematoma seen volarly. IMPRESSION: Comminuted, minimally displa addy fractures from the dorsal cortex of the right index finger distal head of the middle phalanx and dorsal base of the distal phalanx. Flexion deformity of the index finger DIP sugges ting extensor tendon injury. 1.5 mm rounded metallic fore ign body projects in the volar aspect of the index finger DIP joint, with rounded, less dense foreign bodies projecting at the volar soft tissues of the PIP joint. Small laceration at the dist al tip of the right index finger with tiny hematoma seen volarly. 2018-03-02 10:09:00-00:00 EXAM: XR RIGHT HAND 3 VIEWS [facility] DATE: 03/02/2018 10:09 AM CDT INDICATION: - laceration to right index finger, middle finger, fx? COMPARISON: None. TECHNIQUE: PA, lateral and oblique radiographs o f the hand FINDINGS: Digits overlap on the lateral view limiting visu alization. Comminuted, minimally displa addy fractures from the dorsal cortex of the right index finger distal head of the middle phalanx and dorsal base of the distal phalanx. Flexion deformity of the index finger DIP. 1.5 mm rounded metallic fore ign body projects in the volar aspect of the index finger DIP joint, with rounded, less dense foreign bodies projecting at the volar soft tissues of the PIP joint. Small laceration at the dist al tip of the right index finger with tiny hematoma seen volarly. IMPRESSION: Comminuted, minimally displa addy fractures from the dorsal cortex of the right index finger distal head of the middle phalanx and dorsal base of the distal phalanx. Flexion deformity of the index finger DIP sugges ting extensor tendon injury. 1.5 mm rounded metallic fore ign body projects in the volar aspect of the index finger DIP joint, with rounded, less dense foreign bodies projecting at the volar soft tissues of the PIP joint. Small laceration at the dist al tip of the right index finger with tiny hematoma seen volarly. 2018-03-02 10:09:00-00:00 EXAM: XR RIGHT HAND 3 VIEWS [facility] DATE: 03/02/2018 10:09 AM CDT INDICATION: - laceration to right index finger, middle finger, fx? COMPARISON: None. TECHNIQUE: PA, lateral and oblique radiographs o f the hand FINDINGS: Digits overlap on the lateral view limiting visu alization. Comminuted, minimally displa addy fractures from the dorsal cortex of the right index finger distal head of the middle phalanx and dorsal base of the distal phalanx. Flexion deformity of the index finger DIP. 1.5 mm rounded metallic fore ign body projects in the volar aspect of the index finger DIP joint, with rounded, less dense foreign bodies projecting at the volar soft tissues of the PIP joint. Small laceration at the dist al tip of the right index finger with tiny hematoma seen volarly. IMPRESSION: Comminuted, minimally displa addy fractures from the dorsal cortex of the right index finger distal head of the middle phalanx and dorsal base of the distal phalanx. Flexion deformity of the index finger DIP sugges ting extensor tendon injury. 1.5 mm rounded metallic fore ign body projects in the volar aspect of the index finger DIP joint, with rounded, less dense foreign bodies projecting at the volar soft tissues of the PIP joint. Small laceration at the dist al tip of the right index finger with tiny hematoma seen volarly."
--- NOTE | 2023-03-13 15:31 | EDPHYS ---
Physician Documentation [facility] Name: Rodriguez Manzano Age: 22 yrs Sex: Male : 2000 Arrival Date: 03/13/2023 Time: 15:14 Bed 11 Private MD: ED Physician Leroy Harmon HPI: 03/13 15:30 This 22 yrs old Male presents to ER via Ambulatory with complaints of Nose ms3 Problem - Injury. 15:30 22-year-old male with no past medical history presents after hitting his nose with a ms3 josué while lifting concrete approximately 30 minutes prior to arrival. Patient states he did have some blood come from his right nare. Patient states his discomfort is a 6/10 and described as aching. Patient states looking down makes the pain worse. Patient denies alleviating factors. Patient denies loss of consciousness, nausea, vomiting. Historical: - Allergies: 15:25 No Known Allergies; hb - Home Meds: 15:25 None [Active]; hb - PMHx: 15:25 None; hb - PSHx: 15:25 None; hb - Immunization history:: Adult Immunizations up to date. - Social history:: Smoking status: Patient denies any tobacco usage or history of. ROS: 15:30 Constitutional: Negative for fever, and chills. ms3 15:30 Respiratory: Negative for shortness of breath, cough, wheezing, and pleuritic chest pain, Abdomen/GI: Negative for abdominal pain, nausea, vomiting, diarrhea, and constipation, MS/Extremity: Negative for injury and deformity, Skin: Negative for injury, rash, and discoloration. 15:30 ENT: Positive for nose bleed. 15:30 All other systems are negative. Exam: 15:30 Constitutional: This is a well developed, well nourished patient who is awake, alert, ms3 and in no acute distress. Head/Face: Normocephalic, atraumatic. 15:30 Chest/axilla: Normal chest wall appearance and motion. Nontender with no deformity. Cardiovascular: Regular rate and rhythm with a normal S1 and S2. No gallops, murmurs, or rubs. Normal PMI, no JVD. No pulse deficits. Respiratory: Lungs have equal breath sounds bilaterally, clear to auscultation and percussion. No rales, rhonchi or wheezes noted. No increased work of breathing, no retractions or nasal flaring. Abdomen/GI: Soft, non-tender, with normal bowel sounds. No distension or tympany. No guarding or rebound. No evidence of tenderness throughout. Skin: Warm, dry with normal turgor. Normal color with no rashes, no lesions, and no evidence of cellulitis. MS/ Extremity: Pulses equal, no cyanosis. Neurovascular intact. Full, normal range of motion. 15:30 ENT: Nose: Nasal septum: no septal hematoma appreciated, clotted blood, in right nare. Vital Signs: 15:24 BP 131 / 86; Pulse 72; Resp 16; Temp 98.6(O); Pulse Ox 100% on R/A; Weight 68.04 kg; hb Height 5 ft. 8 in. ; Pain 8/10; 15:24 Body Mass Index 22.81 (68.04 kg, 172.72 cm) hb 15:24 Pain Scale: Adult hb MDM: 15:30 Patient medically screened. ms3 15:30 Differential diagnosis: nasal fracture, epistaxis r/t trauma. Data reviewed: vital ms3 signs, nurses notes, and as a result, I will discharge patient. Counseling: I had a detailed discussion with the patient and/or guardian regarding the historical points, exam findings, and any diagnostic results supporting the discharge/admit diagnosis, the need for outpatient follow up, to return to the emergency department if symptoms worsen or persist or if there are any questions or concerns that arise at home. Special discussion: I discussed with the patient/guardian in detail that at this point there is no indication for admission to the hospital. It is understood, however, that if the symptoms persist or worsen the patient needs to return immediately for re-evaluation. ED course: Discussed nasal x-ray with patient and he declines at this time. All questions were answered. Return precautions discussed include worsening symptoms, or any other concerns. Patient given Dr. Milligan's contact information for follow-up in 2 to 3 days. Administered Medications: No medications were administered Disposition Summary: 03/13/23 15:30 Discharge Ordered Location: Home ms3 Condition: Stable ms3 Diagnosis - Nose trauma ms3 - Epistaxis - resolved ms3 Followup: ms3 - With: Abeba Milligan MD - When: 2 - 3 days - Reason: Recheck today's complaints Discharge Instructions: - Discharge Summary Sheet ms3 - Nosebleed, Adult ms3 - Nasal Fracture, [id number] ms3 Forms: - Medication Reconciliation Form ms3 - Thank You Letter ms3 - Antibiotic Education ms3 - Prescription Opioid Use ms3 - Patient Portal Instructions ms3 - Leadership Thank You Letter ms3 Signatures: Judy Chen, RN RN Leroy Goodwin, DO ms3
--- NOTE | 2023-03-13 15:31 | ER ---
Nurse's Notes [facility] Name: Rodriguez Manzano Age: 22 yrs Sex: Male : 2000 Arrival Date: 03/13/2023 Time: 15:14 Bed 11 Private MD: Diagnosis: Nose trauma;Epistaxis-resolved Presentation: 03/13 15:24 Chief complaint: Wad loading a josué when the handle came up and hit him in the nose, hb c/o pain 8/10. Coronavirus screen: At this time, the client does not indicate any symptoms associated with coronavirus-19. Ebola Screen: No symptoms or risks identified at this time. Initial Sepsis Screen: Does the patient meet any 2 criteria? No. Patient's initial sepsis screen is negative. Does the patient have a suspected source of infection? No. Patient's initial sepsis screen is negative. Risk Assessment: Do you want to hurt yourself or someone else? Patient reports no desire to harm self or others. Onset of symptoms was March 13, 2023. 15:24 Method Of Arrival: Ambulatory hb 15:24 Acuity: SHAWANDA 4 hb Historical: - Allergies: 15:25 No Known Allergies; hb - Home Meds: 15:25 None [Active]; hb - PMHx: 15:25 None; hb - PSHx: 15:25 None; hb - Immunization history:: Adult Immunizations up to date. - Social history:: Smoking status: Patient denies any tobacco usage or history of. Screenin:[address] [facility] ED Fall Risk Assessment (Adult) Score/Fall Risk Level 0 - 2 = Low Risk hb Oriented to surroundings, Maintained a safe environment. Abuse screen: Denies threats or abuse. Denies injuries from another. Nutritional screening: No deficits noted. Tuberculosis screening: No symptoms or risk factors identified. Assessment: 15:26 General: Appears in no apparent distress. Behavior is calm, cooperative. Pain: Pain hb currently is 8 out of 10 on a pain scale. Neuro: Level of Consciousness is awake, alert, obeys commands, Oriented to person, place, time, situation. Cardiovascular: Patient's skin is warm and dry. Respiratory: Respiratory effort is unlabored, Respiratory pattern is regular, symmetrical. EENT: Reports pain in nose. Vital Signs: 15:24 BP 131 / 86; Pulse 72; Resp 16; Temp 98.6(O); Pulse Ox 100% on R/A; Weight 68.04 kg; hb Height 5 ft. 8 in. ; Pain 8/10; 15:24 Body Mass Index 22.81 (68.04 kg, 172.72 cm) hb 15:24 Pain Scale: Adult hb ED Course: 15:18 Patient arrived in ED. mg5 15:19 Leroy Harmon DO is Attending Physician. ms3 15:24 Julian Edmondson, RN is Primary Nurse. jl7 15:25 Triage completed. hb 15:25 Arm band placed on. hb 15:25 Patient has correct armband on for positive identification. Provided Education on: . hb 15:25 No provider procedures requiring assistance completed. Patient did not have IV access hb during this emergency room visit. 15:29 Abeba Milligan MD is Referral Physician. ms3 Administered Medications: No medications were administered Medication: 15:26 VIS not applicable for this client. hb Outcome: 15:30 Discharge ordered by . ms3 16:21 Discharged to home ambulatory. jl7 16:21 Condition: stable 16:21 Discharge instructions given to patient, Instructed on discharge instructions, follow up and referral plans. Demonstrated understanding of instructions, follow-up care. 16:21 Patient left the ED. jl7 Signatures: Judy Chen RN RN Julian Edmondson RN RN jl7 Leroy Harmon DO DO ms3 Rhea Dasilva mg5
[2023-03-13 16:26] VITALS: BP 131/86; TEMP 98.6; O2SAT 100
== END 2023-03-13 16:21 | disposition home or self-care (01) ==
LOC: ER 15:14
DX: S09.92XA Unspecified injury of nose, initial encounter (principal)
CPT/HCPCS: 99282